=== PATIENT | female | born 1955 | race Caucasian/White ===

== ENCOUNTER 2017-04-24 19:59 | Inpatient (IN) ==
[2017-04-24] MEDS ORDERED: ONDANSETRON 4 MG/2 ML VIAL IV ONE (20:26)
[2017-04-24] MEDS ORDERED: 0.9 % SODIUM CHLORIDE 1,000 ML IV ONE ×2 (20:26→22:29)
[2017-04-24] MEDS ORDERED: ACETAMINOPHEN 325 MG TABLET PO ONE (20:29)
[2017-04-24 21:34] LABS: Basophils # (Auto) 0 K/mcL (0.0-0.3); Basophils % (Auto) 0.2 % (0.0-2.0); Eosinophils # (Auto) 0.1 K/mcL (0.0-0.7); Eosinophils % (Auto) 0.8 % (0.0-7.0); Granulocytes % (Auto) 82.5 % (38.0-78.0); Lymphocytes # (Auto) 0.7 K/mcL (1.5-4.8); Mean Cell Volume 85.7 fL (80.0-100.0); Mean Corpuscular HGB Conc 34.4 g/dL (31.0-36.0); Mean Corpuscular Hemoglobin 29.5 pg (26.0-34.0); Monocytes # (Auto) 0.6 K/mcL (0.1-0.9); Monocytes % (Auto) 7.5 % (1.0-12.0); Platelet Count 183 K/mcL (140-440); RBC 3.74 M/mcL (4.00-5.20); Red Cell Distribution Width 13.6 % (11.5-14.5)
[2017-04-24 21:51] LABS: ALT/SGPT 6 U/l (0-40); Albumin 3.4 gm/dL (3.2-5.2); Alkaline Phosphatase 91 U/L (39-117); Amylase 15 U/L (28-100); Blood Urea Nitrogen 43 mg/dl (8-23); Lipase 7 U/L (7-60)
[2017-04-24] MEDS ORDERED: cefTRIAXone 1 GM in DEXTROSE 5% IN WATER 50 ML IV ONE (23:23)
--- NOTE | 2017-04-24 23:57 | Emergency Department Note ---
General Adult HPI - General Chief complaint: Nausea/Vomiting/Diarrhea Stated complaint: vomiting with chills and hot flasheds Time Seen by Provider: 04/24/17 20:03 Source: patient, family Mode of arrival: ambulatory Limitations: no limitations - History of Present Illness HPI Narrative: 62-year-old female with nausea vomiting and elevated temperature for the last 3 days. Denies diarrhea. She has not been able to hold any food down. Feeling overall weak and sore. Not urinating much - Related Data Home Medications Medication Instructions Recorded Confirmed ALPRAZolam [Xanax] 0.5 mg PO DAILYP PRN 04/10/17 04/24/17 Atorvastatin [Lipitor] 20 mg PO HS 04/10/17 04/24/17 Hydrochlorothiazide [Oretic] 25 mg PO DAILY 04/10/17 04/24/17 Losartan [Cozaar] 25 mg PO DAILY 04/10/17 04/24/17 Omeprazole 20 mg PO DAILY 04/10/17 04/24/17 Oxybutynin Chloride [Ditropan] 10 mg PO BID 04/10/17 04/24/17 Sertraline [Zoloft] 200 mg PO DAILY 04/10/17 04/24/17 Promethazine-Dm Syrup 5 ml PO Q6HP PRN 04/13/17 04/24/17 Insulin Aspart [Novolog] 5 units SQ BID 04/24/17 04/24/17 Levemir 22 units SQ HS 04/24/17 04/24/17 Allergies Allergy/AdvReac Type Severity Reaction Status Date / Time Neomycin AdvReac Intermediate Rash Verified 11/22/16 08:22 Sulfa (Sulfonamide AdvReac Intermediate Rash Verified 11/22/16 08:22 Antibiotics) tetanus toxoid, adsorbed AdvReac Intermediate Swelling Verified 11/22/16 08:22 Review of Systems All systems ED: reviewed and negative except as stated. Past Medical History - Past Medical History Attestation: Yes: The following information was validated with the patient. Medical history: Reports: diabetes, GERD, hyperlipidemia, hypertension Surgical history ED: Reports: cholecystectomy, orthopedic, other (Left wrist) Psychiatric history: Reports: anxiety - Social History smoking status: Former smoker Alcohol use: Reports: None Drug use: Reports: none Physical Exam Weak fatigue and ill-appearing obese female. Normocephalic atraumatic. Conjunctive are clear sclerae white and nonicteric. No nasal discharge or congestion. Oropharynx with somewhat dry oral mucosa. Neck is supple without lymphadenopathy thyromegaly or carotid bruit. Heart is regular rate and rhythm no murmurs appreciated. Lungs are clear to auscultation bilaterally without wheezes rales rhonchi or respiratory distress. Abdomen is soft nondistended but tender diffusely. No peritoneal signs or guarding. Normal active bowel sounds. No pedal edema. +2 radial pulse. Alert and able to answer questions appropriately. No dysarthria ataxia or tremor - General Limitations: no limitations Course Vital Signs Temperature 100.3 F H 04/24/17 20:00 Pulse Rate 86 04/24/17 20:00 Respiratory Rate 16 04/24/17 20:00 Blood Pressure 142/61 04/24/17 20:00 Pulse Oximetry (%) 97 04/24/17 20:00 Temperature 100.3 F H 04/24/17 20:00 Pulse Rate 88 04/24/17 23:39 Respiratory Rate 16 04/24/17 20:00 Blood Pressure 114/52 04/24/17 23:31 Pulse Oximetry (%) 96 04/24/17 23:39 Medical Decision Making - Medical Records Medical records reviewed: Yes I reviewed the patient's medical records. - Lab Data Lab results reviewed: Yes I reviewed the patient's lab results. Result diagrams: 04/24/17 20:53 04/24/17 20:53 Lab Results 04/24/17 04/24/17 Range/Units 20:53 20:53 WBC 7.8 (4.5-11.0) K/mcL RBC 3.74 L (4.00-5.20) M/mcL Hgb 11.0 L (12.0-15.0) g/dL Hct 32.1 L (36.0-48.0) % MCV 85.7 (80.0-100.0) fL MCH 29.5 (26.0-34.0) pg MCHC 34.4 (31.0-36.0) g/dL RDW 13.6 (11.5-14.5) % Plt Count 183 (140-440) K/mcL MPV 8.4 (7.4-10.4) fL Gran % 82.5 H (38.0-78.0) % Lymph % (Auto) 9.0 L (15.5-49.0) % Gilchrist % (Auto) 7.5 (1.0-12.0) % Eos % (Auto) 0.8 (0.0-7.0) % Baso % (Auto) 0.2 (0.0-2.0) % Gran # 6.4 (1.8-8.0) K/mcL Lymph # (Auto) 0.7 L (1.5-4.8) K/mcL Gilchrist # (Auto) 0.6 (0.1-0.9) K/mcL Eos # (Auto) 0.1 (0.0-0.7) K/mcL Baso # (Auto) 0 (0.0-0.3) K/mcL Sodium 133 (133-145) mmol/L Potassium 4.3 (3.3-5.1) mmol/L Chloride 95 L (96-108) mmol/L Carbon Dioxide 22 (22-30) mmol/L Anion Gap 16.0 (8-16) BUN 43 H (8-23) mg/dl Creatinine 1.6 H (0.6-1.1) mg/dl GFR Calculation 34 Glucose 252 H (70-105) mg/dL Calcium 9.3 (8.6-10.4) mg/dl Total Bilirubin 0.5 (0.0-1.0) mg/dL AST 14 (0-37) U/l ALT 6 (0-40) U/l Alkaline Phosphatase 91 (39-117) U/L Total Protein 6.9 (5.9-8.4) gm/dL Albumin 3.4 (3.2-5.2) gm/dL Globulin 3.5 (2.2-3.7) gm/dL Albumin/Globulin Ratio 1.0 (1.0-2.3) Amylase 15 L (28-100) U/L Lipase 7 (7-60) U/L Urinalysis shows specific gravity 1.010 moderate leukocytes - Radiology Data Radiology results reviewed: Yes I reviewed the patient's radiology results. Abdominal x-ray was done first which shows constipation with lots of stool. Also PillCam was seen CT scan of the abdomen and pelvis with contrast was done secondary to the x-ray being unrevealing and the patient appearing more ill, developing fever shows fat stranding around bilateral kidneys left worse than right-consistent with cystitis/pyelonephritis Disposition Clinical Impression: Pyelonephritis Summary: Initially treated for UTI with Rocephin. Also given IV fluid for elevated creatinine and Zofran for nausea. However also has a fever and evidence of pyelonephritis with fat stranding around both kidneys on CT scan. Discussed scenario with Dr. Claros who will admit for pyelonephritis Disposition: Xfer As Inpt ([facility]) Condition: Fair Referrals: Bri Ryder ARNP [Primary Care Provider] -
[2017-04-25] MEDS ORDERED: 0.9 % SODIUM CHLORIDE 1,000 ML IV ONE ×2 (01:16→02:23)
--- NOTE | 2017-04-25 01:52 | Internal Med History&Physical ---
Medical - H&P: HPI Patient information: Note initiated : 04/25/17 at 1:46 am Service Date, if different from initiated Date: [] Patient: Lulu Barth a 62 y/o F admitted on for vomiting with chills and hot flasheds. Chief Complaint: [] History of present illness: Ms. Criselda Gee is a 62 year old female with h/o DM, CKD, HTN, HLD, who presents to the ER because of nause and vomiting x 2 days, abdominal discomfort x 2 days. Chills with rigors x 4 days. The patient notes that she had one episode of cough with greenish sputum approximately 1 month ago, she was seen in the urgent care clinic adn treated for same. but thinks that she never quite recovered from that. In the interim she was also diagnosed with iron def anemia by her dispensing optician and was advised to be evaluated by GI, She has had an EGD, colonoscopy and a capsule endoscopy. Capsule endoscopy was done on the . The patient started feeling sick since Sunday, she had an episode of chills and rigors which lasted a few hours, She also had another bout of chills and rigors on sunday, Since sunday she has been having nausea with vomiting, and some abdominal discomfort in the epigastric region, Ruq region. The patient had chills rigors with nausea and vomiting and therefore presented to the ER for further Evaluation. She denies any other acute complaints, besides headache, she denies any urinary symptoms. In the ER she had labs which are unremarkable, except mild renal failure(h/o CKD ), She had low bp which responded well to IV fluids. UA is abnormal, CT shows perinephric stranding. She was admitted to the hospital with diagnosis of UTI./ Pyelonephritis. All systems: reviewed and no additional remarkable complaints except as stated ( as per HPI) Medical - H&P: PMH Medical history: Medical History (Last Updated 04/24/17 @ 23:57 by Shan Ryder MD) Fracture, radius, head (Acute) DM HTN CKD HLD Surgical history: h/o cholecystectomy. 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 Medical - H&P: Meds Home Medications Medication Instructions Recorded Confirmed Type ALPRAZolam [Xanax] 0.5 mg PO DAILYP PRN 04/10/17 04/24/17 History Atorvastatin [Lipitor] 20 mg PO HS 04/10/17 04/24/17 History Hydrochlorothiazide [Oretic] 25 mg PO DAILY 04/10/17 04/24/17 History Losartan [Cozaar] 25 mg PO DAILY 04/10/17 04/24/17 History Omeprazole 20 mg PO DAILY 04/10/17 04/24/17 History Oxybutynin Chloride [Ditropan] 10 mg PO BID 04/10/17 04/24/17 History Sertraline [Zoloft] 200 mg PO DAILY 04/10/17 04/24/17 History Promethazine-Dm Syrup 5 ml PO Q6HP PRN 04/13/17 04/24/17 History Insulin Aspart [Novolog] 5 units SQ BID 04/24/17 04/24/17 History Levemir 22 units SQ HS 04/24/17 04/24/17 History Allergies Allergy/AdvReac Type Severity Reaction Status Date / Time Neomycin AdvReac Intermediate Rash Verified 11/22/16 08:22 Sulfa (Sulfonamide AdvReac Intermediate Rash Verified 11/22/16 08:22 Antibiotics) tetanus toxoid, adsorbed AdvReac Intermediate Swelling Verified 11/22/16 08:22 Medical - H&P: Exam - Constitutional Vitals: Temp Pulse Resp BP Pulse Ox 100.3 F H 88 16 114/52 96 04/24/17 20:00 04/24/17 23:39 04/24/17 20:00 04/24/17 23:31 04/24/17 23:39 Exam: GENERAL: The patient is a well-developed, well-nourished in no apparent distress. Is alert and oriented x3. VITAL SIGNS: Reviewed and as noted elsewhere. HEENT: Head is normocephalic and atraumatic. Extraocular muscles are intact. Pupils are equal, round, and reactive to light. Nares appeared normal. Mouth appears any without lesions. Mucous membranes are dry. NECK: Normal to inspection, Supple, No lymphadenopathy or thyromegaly. LUNGS: Air entry equal on both sides, no wheezing, crackles or rhonchi noted. No accessory muscles of respiration HEART: Regular rate and rhythm normal, S1 and S2 heard, no Gallop, S3 or Rub Noted, No Gross murmur heard. ABDOMEN: Soft, nontender, and nondistended. Positive bowel sounds. No hepatosplenomegaly was noted. EXTREMITIES: No cyanosis, clubbing, rash, lesions or edema. NEUROLOGIC: Cranial nerves II through XII are grossly intact. Motor and Sensory System Grossly Intact PSYCHIATRIC: Normal affect, Normal Mood. Appropriate Behavior. SKIN: No ulceration or wounds noted, No jaundice, No rash noted. Medical - H&P: Reslt - Labs CBC & Chem 7: 04/24/17 20:53 04/24/17 20:53 Labs: Short CBC 04/24/17 Range/Units 20:53 WBC 7.8 (4.5-11.0) K/mcL Hgb 11.0 L (12.0-15.0) g/dL Hct 32.1 L (36.0-48.0) % Plt Count 183 (140-440) K/mcL BMP 04/24/17 20:53 Sodium 133 Potassium 4.3 Chloride 95 L Carbon Dioxide 22 BUN 43 H Creatinine 1.6 H Glucose 252 H Calcium 9.3 Liver Function 04/24/17 Range/Units 20:53 Total Bilirubin 0.5 (0.0-1.0) mg/dL AST 14 (0-37) U/l ALT 6 (0-40) U/l Alkaline Phosphatase 91 (39-117) U/L Albumin 3.4 (3.2-5.2) gm/dL Medical - H&P: A/P - Narrative A/P Narrative: A/P Pyelonephritis: Abnl UA and positive CT findings suggestive of same. IV rocephin for now. Monitor, lactate and wbc is wnl but pt clinically appears sick. Pt does not have much urinary symptoms, Will review CT with our Radiologist in AM. Zoonotic exposure? Get CXR chest given h/o PNA. Await blood cultures. MADELINE on CKD: IV fluids for now, monitor renal function. DM: Glucose elevated, lantus and pre meal sliding scale for now; HTN: BP on the lower end, hold bp meds for now, and monitor. DVT hep sq Diet diabetic Full code .
[2017-04-25] MEDS ORDERED: oxyCODONE HCL 5 MG TABLET PO PRN (02:23)
[2017-04-25] MEDS ORDERED: NALOXONE HCL 0.4 MG/ML VIAL IV PRN (02:23)
[2017-04-25] MEDS ORDERED: DEXTROSE 50% 50 ML VIAL IV PRN (02:23)
[2017-04-25] MEDS ORDERED: PROMETHAZINE 25 MG/ML VIAL IV PRN (02:23)
[2017-04-25] MEDS ORDERED: MAGNESIUM HYDROXIDE 30 ML ORAL.SUSP PO PRN (02:23)
[2017-04-25] MEDS: 0.9 % SODIUM CHLORIDE 10 ML SYRINGE IV SCH ×4 (02:25→23:34)
[2017-04-25] MEDS: 0.9 % SODIUM CHLORIDE 1,000 ML IV SCH ×4 (02:26→22:10)
[2017-04-25] MEDS: cefTRIAXone 1 GM in DEXTROSE 5% IN WATER 50 ML IV SCH ×2 (03:22→09:38)
[2017-04-25 05:50] LABS: Basophils # (Auto) 0 K/mcL (0.0-0.3); Basophils % (Auto) 0.3 % (0.0-2.0); Eosinophils # (Auto) 0 K/mcL (0.0-0.7); Eosinophils % (Auto) 0.4 % (0.0-7.0); Granulocytes % (Auto) 77.9 % (38.0-78.0); Lymphocytes # (Auto) 0.9 K/mcL (1.5-4.8); Lymphocytes % (Auto) 14.9 % (15.5-49.0); Mean Cell Volume 87.5 fL (80.0-100.0); Mean Corpuscular HGB Conc 34.2 g/dL (31.0-36.0); Mean Corpuscular Hemoglobin 29.9 pg (26.0-34.0); Monocytes # (Auto) 0.4 K/mcL (0.1-0.9); Monocytes % (Auto) 6.5 % (1.0-12.0); Platelet Count 161 K/mcL (140-440); RBC 3.49 M/mcL (4.00-5.20); Red Cell Distribution Width 13.1 % (11.5-14.5)
[2017-04-25 06:12] LABS: Hemoglobin A1C 7.1 % HGB (4.0-6.0)
[2017-04-25 06:26] LABS: ALT/SGPT 5 U/l (0-40); Albumin 3.1 gm/dL (3.2-5.2); Alkaline Phosphatase 82 U/L (39-117); Bilirubin,Direct < 0.2 mg/dL (0.0-0.3); Blood Urea Nitrogen 40 mg/dl (8-23); Gamma Glutamyl Transpeptidase 17 U/L (5-36); Magnesium 1.3 mg/dL (1.6-2.5); Uric Acid 6.4 mg/dL (2.5-8.0)
--- NOTE | 2017-04-25 06:58 | XRay Report ---
CLINICAL INFORMATION: Pneumonia COMPARISON: 03/26/2013 FINDINGS: Heart size, mediastinum and pulmonary vessels are normal. There is minor atelectasis in the right base - no andreia infiltrate or effusion. Bones and soft tissues normal IMPRESSION: No evidence of pneumonia - minor right basilar atelectasis Interpreted and Authenticated by: Fredrick Gomez 04/25/17
[2017-04-25] MEDS: INSULIN LISPRO 1 UNIT/0.01 ML UNIT SQ SCH ×4 (07:13→20:33)
[2017-04-25] MEDS: ONDANSETRON 4 MG/2 ML VIAL IV PRN (07:13)
[2017-04-25] MEDS: PANTOPRAZOLE 40 MG TABLET PO SCH (07:13)
--- NOTE | 2017-04-25 07:42 | XRay Report ---
CLINICAL INFORMATION: Nausea and vomiting COMPARISON: None. FINDINGS: There is an 18 x 11 mm cylindrical shaped metallic foreign body overlying the left upper quadrant. Exact location is unknown. Stool gas pattern is otherwise normal - there is no free air to suggest GI perforation. No soft tissue mass or organomegaly. IMPRESSION: 18 mm cylindrical shaped metallic foreign body overlying the left upper quadrant. Follow-up CT to be performed Interpreted and Authenticated by: Fredrick Gomez 04/25/17
[2017-04-25] MEDS ORDERED: MAGNESIUM SULFATE 2 GM/50 ML BAG IV ONE (07:49)
--- NOTE | 2017-04-25 08:01 | Cat Scan Report ---
CLINICAL INFORMATION: Acute abdominal pain and vomiting COMPARISON: None. TECHNIQUE: 2.5 mm helical slices were obtained from the mid heart through the subtrochanteric regions. Following reconstruction, 2.5 mm sagittal, coronal and axial reformatted images were processed and reviewed at bone, lung and soft tissue windows. FINDINGS: Lung bases show only minor scattered scarring and/or atelectasis. There are no pleural effusions. The heart is normal in size with a small pericardial effusion. Images through the abdomen show the gallbladder is surgically absent. Intrahepatic and common bile ducts are normal caliber (CBD: 6 mm). The noncontrasted liver, both adrenal glands spleen and aorta are normal in size configuration and attenuation without focal lesion. There is moderate diffuse pancreatic atrophy with fat replacement of the parenchyma. There are few tiny nonobstructing stones within the calyces of both kidneys - less than 2 mm. Images through the pelvis show urinary bladder with mild diffuse wall thickening. A retroverted normal appearing postmenopausal uterus spans the 6.1 x 4 cm. There is no free air, free fluid and no adenopathy. A cylindrical metallic foreign body, likely an electronic bone and, spans 15 x 10 mm and is located in the lumen of the splenic flexure.. No evidence of perforation or bowel obstruction. The remaining colon, including the appendix, small bowel and stomach are grossly normal. Bone windows show no osseous abnormality. IMPRESSION: 1. 15 x 10 mm cylindrical shaped metallic foreign body within the lumen of the colonic splenic flexure. No evidence of perforation or obstruction. It appears to be a small electronic component. It is predicted this will pass spontaneously 2. Small hiatal hernia 3. Small pericardial effusion 4. Moderate pancreatic atrophy 5. Mild diffuse wall thickening the urinary bladder likely an artifact of underdistention. Cystitis possible Interpreted and Authenticated by: Fredrick Gomez 04/25/17
[2017-04-25] MEDS ORDERED: NON FORMULARY MEDICATION 1 DOSE MISCELL (Omeprazole [Omeprazole] 20 MG) PO SCH (09:00)
[2017-04-25] MEDS: HEPARIN 5,000 UNIT/ML VIAL SQ SCH ×2 (09:39→20:04)
[2017-04-25] MEDS: OXYBUTYNIN CHLORIDE 5 MG TABLET PO SCH ×2 (09:39→20:04)
[2017-04-25] MEDS: SERTRALINE 50 MG TABLET PO SCH (09:40)
[2017-04-25] MEDS: INSULIN GLARGINE, HUMAN 1 UNIT/0.01 ML SQ SCH (09:51)
[2017-04-25] MEDS: ATORVASTATIN 20 MG TABLET PO SCH (20:04)
[2017-04-25] MEDS: ACETAMINOPHEN 325 MG TABLET PO PRN (20:57)
[2017-04-26] MEDS: 0.9 % SODIUM CHLORIDE 10 ML SYRINGE IV SCH ×3 (05:51→21:01)
[2017-04-26 06:29] LABS: Basophils # (Auto) 0 K/mcL (0.0-0.3); Basophils % (Auto) 0.4 % (0.0-2.0); Eosinophils # (Auto) 0.1 K/mcL (0.0-0.7); Eosinophils % (Auto) 1.1 % (0.0-7.0); Granulocytes % (Auto) 74.5 % (38.0-78.0); Lymphocytes # (Auto) 0.8 K/mcL (1.5-4.8); Lymphocytes % (Auto) 16.5 % (15.5-49.0); Mean Cell Volume 87.6 fL (80.0-100.0); Mean Corpuscular HGB Conc 33.7 g/dL (31.0-36.0); Mean Corpuscular Hemoglobin 29.5 pg (26.0-34.0); Monocytes # (Auto) 0.4 K/mcL (0.1-0.9); Monocytes % (Auto) 7.5 % (1.0-12.0); Platelet Count 140 K/mcL (140-440); RBC 3.25 M/mcL (4.00-5.20); Red Cell Distribution Width 13.4 % (11.5-14.5)
[2017-04-26 06:56] LABS: ALT/SGPT 7 U/l (0-40); Alkaline Phosphatase 75 U/L (39-117); Bilirubin,Direct < 0.2 mg/dL (0.0-0.3); Blood Urea Nitrogen 30 mg/dl (8-23); Gamma Glutamyl Transpeptidase 18 U/L (5-36); Magnesium 1.8 mg/dL (1.6-2.5); Uric Acid 6.2 mg/dL (2.5-8.0)
[2017-04-26] MEDS: PANTOPRAZOLE 40 MG TABLET PO SCH (07:50)
[2017-04-26] MEDS: INSULIN LISPRO 1 UNIT/0.01 ML UNIT SQ SCH ×4 (07:51→21:01)
[2017-04-26] MEDS: SERTRALINE 50 MG TABLET PO SCH (09:08)
[2017-04-26] MEDS: OXYBUTYNIN CHLORIDE 5 MG TABLET PO SCH ×2 (09:08→21:01)
[2017-04-26] MEDS: HEPARIN 5,000 UNIT/ML VIAL SQ SCH ×2 (09:10→21:00)
[2017-04-26] MEDS: INSULIN GLARGINE, HUMAN 1 UNIT/0.01 ML SQ SCH (09:10)
[2017-04-26] MEDS: cefTRIAXone 1 GM in DEXTROSE 5% IN WATER 50 ML IV SCH (09:13)
--- NOTE | 2017-04-26 12:10 | Internal Med Progress Note ---
Medical - PN: Subj Patient information: Note initiated : 04/26/17 at 11:53 am Service Date, if different from initiated Date: [] Patient: Lulu Barth a 62 y/o F admitted on 04/25/17 for vomiting with chills and hot flasheds. Chief Complaint: [] Interval history: Ms. Criselda Gee is a 62 year old female with h/o DM, CKD, HTN, HLD, who presents to the ER because of nause and vomiting x 2 days, abdominal discomfort x 2 days. Chills with rigors x 4 days. The patient notes that she had one episode of cough with greenish sputum approximately 1 month ago, she was seen in the urgent care clinic adn treated for same. but thinks that she never quite recovered from that. In the interim she was also diagnosed with iron def anemia by her mammographer and was advised to be evaluated by GI, She has had an EGD, colonoscopy and a capsule endoscopy. Capsule endoscopy was done on the . The patient started feeling sick since Sunday, she had an episode of chills and rigors which lasted a few hours, She also had another bout of chills and rigors on sunday, Since sunday she has been having nausea with vomiting, and some abdominal discomfort in the epigastric region, Ruq region. The patient had chills rigors with nausea and vomiting and therefore presented to the ER for further Evaluation. She denies any other acute complaints, besides headache, she denies any urinary symptoms. In the ER she had labs which are unremarkable, except mild renal failure(h/o CKD ), She had low bp which responded well to IV fluids. UA is abnormal, CT shows perinephric stranding. She was admitted to the hospital with diagnosis of UTI./ Pyelonephritis. 04/26 Pt seen examined, no new complaints, was febrile yesterday evening, new set of blood cultres sent. Urine cx positive for ecoli, pt on rocephin. She has intermittent cough, and still has intermittent fevers and chills with rigors, responding well to tylenol. She denies h/o camping or travel outside the country. At this point the working diagnosis is pylenonephritis and UTI, will also look for another source, Chest CT and Parasite smear to be ordered, Pertinent ROS: headache dizziness improved Denies chest pain, palpitations Denies cough or shortness of breath Denies abdominal pain, nausea or vomiting. - Constitutional Vitals: Vital Signs Temp Pulse Resp BP Pulse Ox 97.5 F 66 16 120/72 96 04/26/17 11:37 04/26/17 03:27 04/26/17 11:37 04/26/17 11:37 04/26/17 11:37 Period Temp Pulse Resp BP Sys/Saeed Pulse Ox Last 24 Hr 97.5 F-101.4 F 66-81 14-20 105-149/53-72 90-96 Intake and Output 04/25/17 04/26/17 04/26/17 21:59 05:59 13:59 Intake Total 100 / 100 1250 / 1250 Output Total 525 / 525 450 / 450 650 / 650 Balance -525 / -525 -350 / -350 600 / 600 Weight 256 lb Intake & Output: Intake & Output 04/25/17 04/26/17 04/26/17 21:59 05:59 13:59 Intake Total 100 / 100 1250 / 1250 Output Total 525 / 525 450 / 450 650 / 650 Balance -525 / -525 -350 / -350 600 / 600 Weight 256 lb Intake: IV 1050 / 1050 Rocephin 1 gm In Dextrose 50 / 50 5% in Water 50 ml @ 100 mls/hr IV Q24H [facility] Rx#: [id number] Oral 100 / 100 200 / 200 Output: Void Amount 525 / 525 450 / 450 650 / 650 Other: Meal Lunch Percent of Meal Consumed 100% # Voids 1 # Bowel Movements 1 1 Exam: Constitutional; Afebrile, cooperative, alert, not in distress. Eyes- No icterus, , No periorbital swelling Ears- Ext ear normal, hearing normal to conversation. Neck- Midline trachea, supple Respiratory system: Air Entry equal on both sides, No crackles or wheezing, no rhonchi. CVS- Rate rhythm regular, S1,S2 heard, no gallop, no rub. Abdomen- Soft nontender abdomen, no organomegaly, no tenderness, no guarding or rigidity, 2 YE[employer]- AOOx3, moving all extremities, no gross focal deficit noted. Medical - PN: Obj Da - Labs CBC & Chem 7: 04/26/17 05:22 04/26/17 05:22 Labs: Abnormal Lab Results 04/26/17 04/26/17 04/25/17 05:22 05:22 03:48 RBC 3.25 L Hgb 9.6 L Hct 28.5 L Lymph % (Auto) Lymph # (Auto) 0.8 L BUN 30 H Creatinine 1.5 H Glucose 182 H Hemoglobin A1c 7.1 H Calcium Magnesium Albumin 3.0 L 04/25/17 04/25/17 03:48 03:48 RBC 3.49 L Hgb 10.4 L Hct 30.6 L Lymph % (Auto) 14.9 L Lymph # (Auto) 0.9 L BUN 40 H Creatinine 1.5 H Glucose 234 H Hemoglobin A1c Calcium 8.5 L Magnesium 1.3 L Albumin 3.1 L Meds: Medications Acetaminophen (Tylenol) 650 mg PO Q6HP PRN PRN Reason: PAIN/FEVER > 101 Last Admin: 04/25/17 20:57 Dose: 650 mg Albuterol/Ipratropium (Duoneb) 3 ml NEB Q4HRT PRN PRN Reason: Shortness Of Breath Or Wheezing Alprazolam (Xanax) 0.5 mg PO DAILYP PRN PRN Reason: Anxiety Atorvastatin Calcium (Lipitor) 20 mg PO HS [facility] Last Admin: 04/25/17 20:04 Dose: 20 mg Dextrose (Dextrose 50%) 0 ml IV UD PRN PRN Reason: Hypoglycemia Diagnostic Test (Pha) (Accu-Chek) 1 each FS ACHS [facility] Last Admin: 04/26/17 07:50 Dose: 1 each Heparin Sodium (Porcine) (Heparin) 5,000 unit SQ Q12 [facility] Last Admin: 04/26/17 09:10 Dose: 5,000 unit Ceftriaxone Sodium 1 gm/ (Dextrose) 50 mls @ 100 mls/hr IV Q24H [facility] Last Infusion: 04/26/17 09:57 Dose: Infused Insulin Glargine (Lantus) 10 unit SQ DAILY [facility] Last Admin: 04/26/17 09:10 Dose: 10 unit Insulin Human Lispro (Humalog) 0 unit SQ ACHS [facility] PRN Reason: Protocol Last Admin: 04/26/17 07:51 Dose: 1 unit Magnesium Hydroxide (Milk Of Magnesia) 30 ml PO DAILYP PRN PRN Reason: Constipation Naloxone HCl (Narcan) 0.1 mg IV Q2MIN PRN PRN Reason: Opiate Reversal Ondansetron HCl (Zofran) 4 mg IV Q6HP PRN PRN Reason: Nausea And Vomiting Last Admin: 04/25/17 07:13 Dose: 4 mg Oxybutynin Chloride (Ditropan) 10 mg PO BID [facility] Last Admin: 04/26/17 09:08 Dose: 10 mg Oxycodone HCl (Roxicodone) 5 mg PO Q4HP PRN PRN Reason: Pain Pantoprazole Sodium (Protonix) 40 mg PO QAMAC [facility] Last Admin: 04/26/17 07:50 Dose: 40 mg Promethazine HCl (Phenergan) 12.5 mg IV Q6HP PRN PRN Reason: Nausea And Vomiting Sertraline HCl (Zoloft) 200 mg PO DAILY [facility] Last Admin: 04/26/17 09:08 Dose: 200 mg Sodium Chloride (Saline Flush) 10 ml IV Q8 [facility] Last Admin: 04/26/17 05:51 Dose: Not Given Medical - PN: A/P - Time Spent With Patient Total time spent is greater than 50% in coordination of care (as documented) at patient's floor/unit and/or counseling patient: - Narrative A/P Narrative: A/P Pyelonephritis: still the working diagnosis, Urine cx positive for ecoli, sensitive for rocepin, given clinical picture, will get CT chest, parasite smear and [place] viris antibody MADELINE on CKD: IV fluids for now, renal function nearly back to baseline. creat 1.5 DM: Glucose elevated, lantus and pre meal sliding scale for now; glucose is above goal, increase sliding scale to medium. HTN: BP stable, hold bp meds resume once bp improves. DVT hep sq Diet diabetic Full code . Medical - PN: Qual - VTE Deep Vein Thrombosis/Pulmonary Embolism Present on Admission: No
--- NOTE | 2017-04-26 13:35 | Cat Scan Report ---
CLINICAL INFORMATION: Fever COMPARISON: Chest x-ray 04/25/2017 TECHNIQUE: 2.5 mm axial slices were obtained from the lung apices through the bases without intravenous contrast. Sagittal, coronal and axial reformatted images were processed and reviewed at bone, lung and soft tissue windows. 7 mm axial MIP images were also reconstructed. FINDINGS: Pulmonary parenchymal windows show vague patchy groundglass infiltrates in a peribronchial vascular distribution within the right upper, middle and lower lobes. There is only minimal scattered scarring or atelectasis in the peripheral left lower lobe. Tiny bilateral pleural effusions are appreciated. Mediastinal windows show the heart is mildly enlarged with small pericardial effusion. Central pulmonary arteries are mildly enlarged - 3.3 cm. The noncontrasted thoracic aorta is normal. There is no adenopathy in the mediastinal hilar or axillary region. Esophagus is normal. The bones and soft tissues the chest wall are significant for a moderate size - 8 mm AP dimension left paracentral calcified disc protrusion at T8-9. It mildly impinges the anterior thoracic cord. IMPRESSION: 1. Small vague patchy, multifocal groundglass infiltrates in the right, upper middle and lower lobes. Suspect infection 2. Multiple large central pulmonary arteries suggestive, but not diagnostic, of pulmonary hypertension 3. Moderate sized (8 mm) left paracentral calcified disc extrusion at T8-9 which mildly impinges the thoracic cord. This is likely long-standing and may not be significant 4. Small pericardial effusion Interpreted and Authenticated by: Fredrick Gomez 04/26/17
[2017-04-26] MEDS: IPRATROPIUM/ALBUTEROL 3 ML AMPUL.NEB NEB PRN (21:00)
[2017-04-26] MEDS: ATORVASTATIN 20 MG TABLET PO SCH (21:00)
[2017-04-26] MEDS: ACETAMINOPHEN 325 MG TABLET PO PRN (21:08)
[2017-04-26] MEDS: ALPRAZolam 0.5 MG TABLET PO PRN (22:04)
[2017-04-27] MEDS: ACETAMINOPHEN 325 MG TABLET PO PRN (03:46)
[2017-04-27 06:14] LABS: Basophils # (Auto) 0 K/mcL (0.0-0.3); Basophils % (Auto) 0.3 % (0.0-2.0); Eosinophils # (Auto) 0.1 K/mcL (0.0-0.7); Eosinophils % (Auto) 1.1 % (0.0-7.0); Granulocytes % (Auto) 72.7 % (38.0-78.0); Lymphocytes # (Auto) 0.9 K/mcL (1.5-4.8); Lymphocytes % (Auto) 17.9 % (15.5-49.0); Mean Cell Volume 87.2 fL (80.0-100.0); Mean Corpuscular HGB Conc 33.8 g/dL (31.0-36.0); Mean Corpuscular Hemoglobin 29.4 pg (26.0-34.0); Monocytes # (Auto) 0.4 K/mcL (0.1-0.9); Platelet Count 148 K/mcL (140-440); RBC 3.15 M/mcL (4.00-5.20); Red Cell Distribution Width 13.5 % (11.5-14.5)
[2017-04-27 06:41] LABS: ALT/SGPT 7 U/l (0-40); Albumin 3.1 gm/dL (3.2-5.2); Alkaline Phosphatase 82 U/L (39-117); Bilirubin,Direct < 0.2 mg/dL (0.0-0.3); Blood Urea Nitrogen 31 mg/dl (8-23); Gamma Glutamyl Transpeptidase 19 U/L (5-36); Magnesium 1.6 mg/dL (1.6-2.5)
[2017-04-27] MEDS: 0.9 % SODIUM CHLORIDE 10 ML SYRINGE IV SCH ×3 (08:37→20:42)
[2017-04-27] MEDS: PANTOPRAZOLE 40 MG TABLET PO SCH (08:37)
[2017-04-27] MEDS: INSULIN LISPRO 1 UNIT/0.01 ML UNIT SQ SCH ×4 (09:09→20:42)
[2017-04-27] MEDS: HEPARIN 5,000 UNIT/ML VIAL SQ SCH ×2 (09:09→20:41)
[2017-04-27] MEDS: INSULIN GLARGINE, HUMAN 1 UNIT/0.01 ML SQ SCH ×2 (09:09→20:42)
[2017-04-27] MEDS: SERTRALINE 50 MG TABLET PO SCH (09:12)
[2017-04-27] MEDS: AZITHROMYCIN 250 MG TABLET PO SCH (09:12)
[2017-04-27] MEDS: OXYBUTYNIN CHLORIDE 5 MG TABLET PO SCH ×2 (09:12→20:41)
[2017-04-27] MEDS: cefTRIAXone 1 GM in DEXTROSE 5% IN WATER 50 ML IV SCH (09:13)
[2017-04-27] MEDS ORDERED: BISACODYL 10 MG SUPP.RECT PR PRN (10:46)
[2017-04-27] MEDS ORDERED: FLEETS ADULT ENEMA PR PRN (10:46)
--- NOTE | 2017-04-27 12:37 | XRay Report ---
CLINICAL INFORMATION: Foreign body COMPARISON: 04/24/2017 FINDINGS: The 18th millimeters cylindrical foreign body, previously located in the splenic flexure of the colon, migrated into the mid sigmoid colon. Stool gas pattern is unremarkable. There is no free air to suggest bowel perforation. No soft tissue mass, organomegaly or pathologic calcification IMPRESSION: 18 mm cylindrical metallic foreign body is migrated now within the mid sigmoid colon. No evidence of bowel perforation or other complication Interpreted and Authenticated by: Fredrick Gomez 04/27/17
--- NOTE | 2017-04-27 12:37 | Internal Med Progress Note ---
Medical - PN: Subj Patient information: Note initiated : 04/27/17 at 12:34 pm Service Date, if different from initiated Date: [] Patient: Lulu Barth a 62 y/o F admitted on 04/25/17 for vomiting with chills and hot flasheds. Chief Complaint: [] Interval history: Ms. Criselda Gee is a 62 year old female with h/o DM, CKD, HTN, HLD, who presents to the ER because of nause and vomiting x 2 days, abdominal discomfort x 2 days. Chills with rigors x 4 days. The patient notes that she had one episode of cough with greenish sputum approximately 1 month ago, she was seen in the urgent care clinic adn treated for same. but thinks that she never quite recovered from that. In the interim she was also diagnosed with iron def anemia by her fire protection specialist and was advised to be evaluated by GI, She has had an EGD, colonoscopy and a capsule endoscopy. Capsule endoscopy was done on the . The patient started feeling sick since Sunday, she had an episode of chills and rigors which lasted a few hours, She also had another bout of chills and rigors on sunday, Since sunday she has been having nausea with vomiting, and some abdominal discomfort in the epigastric region, Ruq region. The patient had chills rigors with nausea and vomiting and therefore presented to the ER for further Evaluation. She denies any other acute complaints, besides headache, she denies any urinary symptoms. In the ER she had labs which are unremarkable, except mild renal failure(h/o CKD ), She had low bp which responded well to IV fluids. UA is abnormal, CT shows perinephric stranding. She was admitted to the hospital with diagnosis of UTI./ Pyelonephritis. 04/26 Pt seen examined, no new complaints, was febrile yesterday evening, new set of blood cultres sent. Urine cx positive for ecoli, pt on rocephin. She has intermittent cough, and still has intermittent fevers and chills with rigors, responding well to tylenol. She denies h/o camping or travel outside the country. At this point the working diagnosis is pylenonephritis and UTI, will also look for another source, Chest CT and Parasite smear to be ordered, 04/27 Pt seen examined, no acute overnight events, had low grade temp again yesterday evening, which responded well to tylenol, Blood culture are neg so far , CT chest done showsw possible mild early PNA, based on interstitial changes, Zithromax added. She remains on rocphen for UTI/ Pyelonephritis. Prolactin levels continue to trend down, which is a good sign, [place] virus pending. No h/o tick bites or camping, hold off on parasite smear, Pt reports improvement , but still is very tired. Pertinent ROS: Constitutional; Afebrile, cooperative, alert, not in distress. Eyes- No icterus, , No periorbital swelling Ears- Ext ear normal, hearing normal to conversation. Neck- Midline trachea, supple Respiratory system: Air Entry equal on both sides, No crackles or wheezing, no rhonchi. CVS- Rate rhythm regular, S1,S2 heard, no gallop, no rub. Abdomen- Soft nontender abdomen, no organomegaly, no tenderness, no guarding or rigidity, DISEASE CASE MANAGER- AOOx3, moving all extremities, no gross focal deficit noted. - Constitutional Vitals: Vital Signs Temp Pulse Resp BP Pulse Ox 98.8 F 72 16 124/60 92 04/27/17 11:49 04/27/17 04:00 04/27/17 11:49 04/27/17 11:49 04/27/17 11:49 Period Temp Pulse Resp BP Sys/Saeed Pulse Ox Last 24 Hr 97.3 F-100.4 F 72-102 16-24 96-138/55-75 90-96 Intake and Output 04/26/17 04/27/17 04/27/17 21:59 05:59 13:59 Intake Total 800 / 800 150 / 150 480 / 480 Output Total 525 / 525 550 / 550 650 / 650 Balance 275 / 275 -400 / -400 -170 / -170 Weight 260 lb Intake & Output: Intake & Output 04/26/17 04/27/17 04/27/17 21:59 05:59 13:59 Intake Total 800 / 800 150 / 150 480 / 480 Output Total 525 / 525 550 / 550 650 / 650 Balance 275 / 275 -400 / -400 -170 / -170 Weight 260 lb Intake: Oral 800 / 800 150 / 150 480 / 480 Output: Void Amount 525 / 525 550 / 550 650 / 650 Other: Meal Breakfast Percent of Meal Consumed 100% Exam: Constitutional; Afebrile, cooperative, alert, not in distress. Eyes- No icterus, , No periorbital swelling Ears- Ext ear normal, hearing normal to conversation. Neck- Midline trachea, supple Respiratory system: Air Entry equal on both sides, No crackles or wheezing, no rhonchi. CVS- Rate rhythm regular, S1,S2 heard, no gallop, no rub. Abdomen- Soft nontender abdomen, no organomegaly, no tenderness, no guarding or rigidity, DISEASE CASE MANAGER- AOOx3, moving all extremities, no gross focal deficit noted. Medical - PN: Obj Da - Labs CBC & Chem 7: 04/28/17 05:27 04/28/17 05:27 Labs: Abnormal Lab Results 04/27/17 04/27/17 04/26/17 05:28 05:28 05:22 RBC 3.15 L Hgb 9.3 L Hct 27.4 L Lymph % (Auto) Lymph # (Auto) 0.9 L BUN 31 H 30 H Creatinine 1.5 H 1.5 H Glucose 227 H 182 H Hemoglobin A1c Calcium Magnesium Albumin 3.1 L 3.0 L 04/26/17 04/25/17 04/25/17 05:22 03:48 03:48 RBC 3.25 L Hgb 9.6 L Hct 28.5 L Lymph % (Auto) Lymph # (Auto) 0.8 L BUN 40 H Creatinine 1.5 H Glucose 234 H Hemoglobin A1c 7.1 H Calcium 8.5 L Magnesium 1.3 L Albumin 3.1 L 04/25/17 03:48 RBC 3.49 L Hgb 10.4 L Hct 30.6 L Lymph % (Auto) 14.9 L Lymph # (Auto) 0.9 L BUN Creatinine Glucose Hemoglobin A1c Calcium Magnesium Albumin Meds: Medications Acetaminophen (Tylenol) 650 mg PO Q6HP PRN PRN Reason: PAIN/FEVER > 101 Last Admin: 04/27/17 03:46 Dose: 650 mg Albuterol/Ipratropium (Duoneb) 3 ml NEB Q4HRT PRN PRN Reason: Shortness Of Breath Or Wheezing Last Admin: 04/26/17 21:00 Dose: 3 ml Alprazolam (Xanax) 0.5 mg PO DAILYP PRN PRN Reason: Anxiety Last Admin: 04/26/17 22:04 Dose: 0.5 mg Atorvastatin Calcium (Lipitor) 20 mg PO HS [facility] Last Admin: 04/26/17 21:00 Dose: 20 mg Azithromycin (Zithromax) 250 mg PO DAILY [facility] Stop: 04/30/17 09:01 Last Admin: 04/27/17 09:12 Dose: 250 mg Bisacodyl (Dulcolax) 10 mg OR Q2-3DAYS PRN PRN Reason: Constipation Last Admin: 04/27/17 11:26 Dose: 10 mg Dextrose (Dextrose 50%) 0 ml IV UD PRN PRN Reason: Hypoglycemia Diagnostic Test (Pha) (Accu-Chek) 1 each FS ACHS [facility] Last Admin: 04/27/17 11:30 Dose: 1 each Docusate Sodium (Colace) 100 mg PO BID [facility] Heparin Sodium (Porcine) (Heparin) 5,000 unit SQ Q12 [facility] Last Admin: 04/27/17 09:09 Dose: 5,000 unit Ceftriaxone Sodium 1 gm/ (Dextrose) 50 mls @ 100 mls/hr IV Q24H [facility] Last Admin: 04/27/17 09:13 Dose: 100 mls/hr Insulin Glargine (Lantus) 10 unit SQ DAILY [facility] Last Admin: 04/27/17 09:09 Dose: 10 unit Insulin Human Lispro (Humalog) 0 unit SQ ACHS [facility] PRN Reason: Protocol Last Admin: 04/27/17 09:09 Dose: 6 unit Magnesium Hydroxide (Milk Of Magnesia) 30 ml PO DAILYP PRN PRN Reason: Constipation Naloxone HCl (Narcan) 0.1 mg IV Q2MIN PRN PRN Reason: Opiate Reversal Ondansetron HCl (Zofran) 4 mg IV Q6HP PRN PRN Reason: Nausea And Vomiting Last Admin: 04/25/17 07:13 Dose: 4 mg Oxybutynin Chloride (Ditropan) 10 mg PO BID [facility] Last Admin: 04/27/17 09:12 Dose: 10 mg Oxycodone HCl (Roxicodone) 5 mg PO Q4HP PRN PRN Reason: Pain Pantoprazole Sodium (Protonix) 40 mg PO QAMAC [facility] Last Admin: 04/27/17 08:37 Dose: 40 mg Promethazine HCl (Phenergan) 12.5 mg IV Q6HP PRN PRN Reason: Nausea And Vomiting Sertraline HCl (Zoloft) 200 mg PO DAILY [facility] Last Admin: 04/27/17 09:12 Dose: 200 mg Sodium Biphosphate/Sodium Phosphate (Fleets Adult) 1 dose OR Q3-4DAYS PRN PRN Reason: Constipation Sodium Chloride (Saline Flush) 10 ml IV Q8 [facility] Last Admin: 04/27/17 08:37 Dose: 10 ml Medical - PN: A/P - Time Spent With Patient Total time spent is greater than 50% in coordination of care (as documented) at patient's floor/unit and/or counseling patient: - Narrative A/P Narrative: A/P Pyelonephritis: still the working diagnosis, Urine cx positive for ecoli, sensitive for rocepin, given clinical picture, will get CT chest, parasite smear and [place] viris antibody. Increase the dose of rocephin to 2gms. PNA: Community acquired, mild noted on CT, resume zithromax. MADELINE on CKD: IV fluids for now, renal function nearly back to baseline. creat 1.5 DM: Glucose elevated, lantus and pre meal sliding scale for now; glucose is above goal, increase sliding scale to medium. HTN: BP stable, hold bp meds resume once bp improves. DVT hep sq Diet diabetic Full code . Medical - PN: Qual - VTE Deep Vein Thrombosis/Pulmonary Embolism Present on Admission: No
[2017-04-27] MEDS: DOCUSATE SODIUM 100 MG CAPSULE PO SCH (20:41)
[2017-04-27] MEDS: ALPRAZolam 0.5 MG TABLET PO PRN (20:41)
[2017-04-27] MEDS: ATORVASTATIN 20 MG TABLET PO SCH (20:41)
[2017-04-27] MEDS: IPRATROPIUM/ALBUTEROL 3 ML AMPUL.NEB NEB PRN (20:57)
[2017-04-28] MEDS: 0.9 % SODIUM CHLORIDE 10 ML SYRINGE IV SCH ×3 (06:13→21:23)
[2017-04-28 06:21] LABS: Basophils # (Auto) 0 K/mcL (0.0-0.3); Basophils % (Auto) 0.4 % (0.0-2.0); Eosinophils # (Auto) 0.1 K/mcL (0.0-0.7); Eosinophils % (Auto) 2.1 % (0.0-7.0); Granulocytes % (Auto) 70.8 % (38.0-78.0); Lymphocytes # (Auto) 0.9 K/mcL (1.5-4.8); Lymphocytes % (Auto) 19.1 % (15.5-49.0); Mean Cell Volume 85.9 fL (80.0-100.0); Mean Corpuscular HGB Conc 34.1 g/dL (31.0-36.0); Mean Corpuscular Hemoglobin 29.3 pg (26.0-34.0); Monocytes # (Auto) 0.4 K/mcL (0.1-0.9); Monocytes % (Auto) 7.6 % (1.0-12.0); Platelet Count 168 K/mcL (140-440); RBC 3.05 M/mcL (4.00-5.20); Red Cell Distribution Width 13.9 % (11.5-14.5)
[2017-04-28 06:39] LABS: ALT/SGPT 7 U/l (0-40); Albumin 3.2 gm/dL (3.2-5.2); Alkaline Phosphatase 81 U/L (39-117); Bilirubin,Direct < 0.2 mg/dL (0.0-0.3); Blood Urea Nitrogen 32 mg/dl (8-23); Gamma Glutamyl Transpeptidase 19 U/L (5-36); Magnesium 1.6 mg/dL (1.6-2.5); Uric Acid 7.6 mg/dL (2.5-8.0)
[2017-04-28] MEDS: INSULIN LISPRO 1 UNIT/0.01 ML UNIT SQ SCH ×4 (07:10→21:22)
[2017-04-28] MEDS: PANTOPRAZOLE 40 MG TABLET PO SCH (07:11)
[2017-04-28] MEDS: cefTRIAXone 1 GM in DEXTROSE 5% IN WATER 50 ML IV SCH (08:29)
[2017-04-28] MEDS: OXYBUTYNIN CHLORIDE 5 MG TABLET PO SCH ×2 (08:30→21:21)
[2017-04-28] MEDS: SERTRALINE 50 MG TABLET PO SCH (08:31)
[2017-04-28] MEDS: DOCUSATE SODIUM 100 MG CAPSULE PO SCH ×2 (08:31→21:21)
[2017-04-28] MEDS: HEPARIN 5,000 UNIT/ML VIAL SQ SCH ×2 (08:31→21:22)
[2017-04-28] MEDS: AZITHROMYCIN 250 MG TABLET PO SCH (08:31)
[2017-04-28] MEDS ORDERED: cefTRIAXone 1 GM in DEXTROSE 5% IN WATER 50 ML IV ONE (10:00)
[2017-04-28] MEDS ORDERED: POLYETHYLENE GLYCOL 3350 17 GM PACKET PO ONE (10:29)
--- NOTE | 2017-04-28 10:32 | Internal Med Progress Note ---
Medical - PN: Subj Patient information: Note initiated : 04/28/17 at 10:30 am Service Date, if different from initiated Date: [] Patient: Luul Barth a 62 y/o F admitted on 04/25/17 for vomiting with chills and hot flasheds. Chief Complaint: [] Interval history: Ms. Criselda Gee is a 62 year old female with h/o DM, CKD, HTN, HLD, who presents to the ER because of nause and vomiting x 2 days, abdominal discomfort x 2 days. Chills with rigors x 4 days. The patient notes that she had one episode of cough with greenish sputum approximately 1 month ago, she was seen in the urgent care clinic adn treated for same. but thinks that she never quite recovered from that. In the interim she was also diagnosed with iron def anemia by her neuro intensivist physician and was advised to be evaluated by GI, She has had an EGD, colonoscopy and a capsule endoscopy. Capsule endoscopy was done on the . The patient started feeling sick since Sunday, she had an episode of chills and rigors which lasted a few hours, She also had another bout of chills and rigors on sunday, Since sunday she has been having nausea with vomiting, and some abdominal discomfort in the epigastric region, Ruq region. The patient had chills rigors with nausea and vomiting and therefore presented to the ER for further Evaluation. She denies any other acute complaints, besides headache, she denies any urinary symptoms. In the ER she had labs which are unremarkable, except mild renal failure(h/o CKD ), She had low bp which responded well to IV fluids. UA is abnormal, CT shows perinephric stranding. She was admitted to the hospital with diagnosis of UTI./ Pyelonephritis. 04/26 Pt seen examined, no new complaints, was febrile yesterday evening, new set of blood cultres sent. Urine cx positive for ecoli, pt on rocephin. She has intermittent cough, and still has intermittent fevers and chills with rigors, responding well to tylenol. She denies h/o camping or travel outside the country. At this point the working diagnosis is pylenonephritis and UTI, will also look for another source, Chest CT and Parasite smear to be ordered, 04/27 Pt seen examined, no acute overnight events, had low grade temp again yesterday evening, which responded well to tylenol, Blood culture are neg so far , CT chest done showsw possible mild early PNA, based on interstitial changes, Zithromax added. She remains on rocphen for UTI/ Pyelonephritis. Prolactin levels continue to trend down, which is a good sign, [place] virus pending. No h/o tick bites or camping, hold off on parasite smear, Pt reports improvement , but still is very tired. 04/28: Pt seen examined, appears a bit better today, but still very tired, had low grade temp 100.2 last night at 8, she worked with PT and was very tired. She still has significant consitpation. X ray abdomen s hows that there is movement of the pill Cam. No new complaints, tolerating po well. at bedside. Plan of care updated. Labs reveiwed, procalcitonin trending down, wbc normal. Pertinent ROS: Denies headache, dizziness Denies chest pain, palpitations Denies cough or shortness of breath Denies abdominal pain, nausea or vomiting/ . Constipation present. - Constitutional Vitals: Vital Signs Temp Pulse Resp BP Pulse Ox 97.8 F 80 20 124/72 95 04/28/17 07:48 04/28/17 04:00 04/28/17 07:48 04/28/17 07:48 04/28/17 10:05 Period Temp Pulse Resp BP Sys/Saeed Pulse Ox Last 24 Hr 97.6 F-100.2 F 80-98 16-22 107-130/60-72 91-96 Intake and Output 04/27/17 04/28/17 04/28/17 21:59 05:59 13:59 Intake Total 960 / 960 600 / 600 740 / 740 Output Total 700 / 700 400 / 400 725 / 725 Balance 260 / 260 200 / 200 Weight 265 lb Intake & Output: Intake & Output 04/27/17 04/28/17 04/28/17 21:59 05:59 13:59 Intake Total 960 / 960 600 / 600 740 / 740 Output Total 700 / 700 400 / 400 725 / 725 Balance 260 / 260 200 / 200 Weight 265 lb Intake: Oral 960 / 960 600 / 600 740 / 740 Output: Void Amount 700 / 700 400 / 400 725 / 725 Other: Meal Dinner Percent of Meal Consumed 100% 50% Feeding Ability Assist with Tray Set Up # Bowel Movements 1 1 Exam: Constitutional; Afebrile, cooperative, alert, not in distress. morbidly obese Eyes- No icterus, , No periorbital swelling Ears- Ext ear normal, hearing normal to conversation. Neck- Midline trachea, supple Respiratory system: Air Entry equal on both sides, No crackles or wheezing, no rhonchi. CVS- Rate rhythm regular, S1,S2 heard, no gallop, no rub. 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 Medical - PN: Obj Da - Labs CBC & Chem 7: 04/28/17 05:27 04/28/17 05:27 Labs: Abnormal Lab Results 04/28/17 04/28/17 04/27/17 05:27 05:27 05:28 RBC 3.05 L Hgb 8.9 L Hct 26.2 L Lymph # (Auto) 0.9 L BUN 32 H 31 H Creatinine 1.5 H 1.5 H Glucose 191 H 227 H Albumin 3.1 L 04/27/17 04/26/17 04/26/17 05:28 05:22 05:22 RBC 3.15 L 3.25 L Hgb 9.3 L 9.6 L Hct 27.4 L 28.5 L Lymph # (Auto) 0.9 L 0.8 L BUN 30 H Creatinine 1.5 H Glucose 182 H Albumin 3.0 L Meds: Medications Acetaminophen (Tylenol) 650 mg PO Q6HP PRN PRN Reason: PAIN/FEVER > 101 Last Admin: 04/27/17 03:46 Dose: 650 mg Albuterol/Ipratropium (Duoneb) 3 ml NEB Q4HRT PRN PRN Reason: Shortness Of Breath Or Wheezing Last Admin: 04/27/17 20:57 Dose: 3 ml Alprazolam (Xanax) 0.5 mg PO DAILYP PRN PRN Reason: Anxiety Last Admin: 04/27/17 20:41 Dose: 0.5 mg Atorvastatin Calcium (Lipitor) 20 mg PO HS [facility] Last Admin: 04/27/17 20:41 Dose: 20 mg Azithromycin (Zithromax) 250 mg PO DAILY [facility] Stop: 04/30/17 09:01 Last Admin: 04/28/17 08:31 Dose: 250 mg Bisacodyl (Dulcolax) 10 mg RI Q2-3DAYS PRN PRN Reason: Constipation Last Admin: 04/27/17 11:26 Dose: 10 mg Dextrose (Dextrose 50%) 0 ml IV UD PRN PRN Reason: Hypoglycemia Diagnostic Test (Pha) (Accu-Chek) 1 each FS ACHS [facility] Last Admin: 04/28/17 07:10 Dose: 1 each Docusate Sodium (Colace) 100 mg PO BID [facility] Last Admin: 04/28/17 08:31 Dose: 100 mg Heparin Sodium (Porcine) (Heparin) 5,000 unit SQ Q12 [facility] Last Admin: 04/28/17 08:31 Dose: 5,000 unit Ceftriaxone Sodium 2 gm/ (Dextrose) 50 mls @ 100 mls/hr IV Q24H [facility] Insulin Glargine (Lantus) 20 unit SQ [facility] Last Admin: 04/27/17 20:42 Dose: 20 unit Insulin Human Lispro (Humalog) 0 unit SQ [facility] PRN Reason: Protocol Last Admin: 04/28/17 07:10 Dose: 4 unit Magnesium Hydroxide (Milk Of Magnesia) 30 ml PO DAILYP PRN PRN Reason: Constipation Naloxone HCl (Narcan) 0.1 mg IV Q2MIN PRN PRN Reason: Opiate Reversal Ondansetron HCl (Zofran) 4 mg IV Q6HP PRN PRN Reason: Nausea And Vomiting Last Admin: 04/25/17 07:13 Dose: 4 mg Oxybutynin Chloride (Ditropan) 10 mg PO BID [facility] Last Admin: 04/28/17 08:30 Dose: 10 mg Oxycodone HCl (Roxicodone) 5 mg PO Q4HP PRN PRN Reason: Pain Last Admin: 04/27/17 21:05 Dose: 5 mg Pantoprazole Sodium (Protonix) 40 mg PO QAMAC [facility] Last Admin: 04/28/17 07:11 Dose: 40 mg Promethazine HCl (Phenergan) 12.5 mg IV Q6HP PRN PRN Reason: Nausea And Vomiting Sertraline HCl (Zoloft) 200 mg PO DAILY [facility] Last Admin: 04/28/17 08:31 Dose: 200 mg Sodium Biphosphate/Sodium Phosphate (Fleets Adult) 1 dose RI Q3-4DAYS PRN PRN Reason: Constipation Sodium Chloride (Saline Flush) 10 ml IV Q8 [facility] Last Admin: 04/28/17 06:13 Dose: 10 ml Medical - PN: A/P - Time Spent With Patient Total time spent is greater than 50% in coordination of care (as documented) at patient's floor/unit and/or counseling patient: - Narrative A/P Narrative: A/P Pyelonephritis: still the working diagnosis, Urine cx positive for ecoli, on 2 gms rocephin, clinically she is improving well. the low grade temp in evening is a bit concerning. Fever: Low grade temp in the evening, LDH neg, blood culture is neg, Urine cx positive. but given pt has no urinary complaints other etiology was sought but was not found. LDH is neg, will get peripheral smear to look for occult blood malignancy. CT chest abdom pelvis neg for any obvious malignancy. constipation: Miralax today, failed rectal suppository. PNA: Community acquired, mild noted on CT, resume zithromax. MADELINE on CKD: IV fluids for now, renal function nearly back to baseline. creat 1.5 DM: Glucose at goal, on lantus and med scale sliding insulin. HTN: BP stable, hold bp meds resume once bp improves. DVT hep sq Diet diabetic Full code . Dispo: Medical - PN: Qual - VTE Deep Vein Thrombosis/Pulmonary Embolism Present on Admission: No
[2017-04-28] MEDS ORDERED: MAGNESIUM SULFATE 2 GM/50 ML BAG IV ONE (18:15)
[2017-04-28] MEDS: ATORVASTATIN 20 MG TABLET PO SCH (21:22)
[2017-04-28] MEDS: INSULIN GLARGINE, HUMAN 1 UNIT/0.01 ML SQ SCH (21:23)
[2017-04-28] MEDS: ALPRAZolam 0.5 MG TABLET PO PRN (21:39)
[2017-04-28] MEDS: ONDANSETRON 4 MG/2 ML VIAL IV PRN (21:40)
[2017-04-29] MEDS: 0.9 % SODIUM CHLORIDE 10 ML SYRINGE IV SCH ×3 (06:08→21:02)
[2017-04-29 07:08] LABS: Basophils # (Auto) 0 K/mcL (0.0-0.3); Basophils % (Auto) 0.6 % (0.0-2.0); Eosinophils # (Auto) 0.3 K/mcL (0.0-0.7); Granulocytes % (Auto) 62.6 % (38.0-78.0); Lymphocytes # (Auto) 1.3 K/mcL (1.5-4.8); Lymphocytes % (Auto) 24.9 % (15.5-49.0); Mean Cell Volume 87.2 fL (80.0-100.0); Mean Corpuscular HGB Conc 33.6 g/dL (31.0-36.0); Mean Corpuscular Hemoglobin 29.3 pg (26.0-34.0); Monocytes # (Auto) 0.4 K/mcL (0.1-0.9); Monocytes % (Auto) 6.9 % (1.0-12.0); Platelet Count 174 K/mcL (140-440); RBC 3.01 M/mcL (4.00-5.20); Red Cell Distribution Width 13.7 % (11.5-14.5)
[2017-04-29 07:37] LABS: ALT/SGPT 9 U/l (0-40); Albumin/Globulin Ratio 0.9 (1.0-2.3); Alkaline Phosphatase 98 U/L (39-117); Bilirubin,Direct < 0.2 mg/dL (0.0-0.3); Blood Urea Nitrogen 34 mg/dl (8-23); Gamma Glutamyl Transpeptidase 20 U/L (5-36); Magnesium 1.9 mg/dL (1.6-2.5)
[2017-04-29] MEDS: INSULIN LISPRO 1 UNIT/0.01 ML UNIT SQ SCH ×4 (07:42→20:56)
[2017-04-29] MEDS: OXYBUTYNIN CHLORIDE 5 MG TABLET PO SCH ×2 (07:54→20:55)
[2017-04-29] MEDS: DOCUSATE SODIUM 100 MG CAPSULE PO SCH ×2 (07:54→20:55)
[2017-04-29] MEDS: ACETAMINOPHEN 325 MG TABLET PO PRN (07:54)
[2017-04-29] MEDS: PANTOPRAZOLE 40 MG TABLET PO SCH (07:54)
[2017-04-29] MEDS: AZITHROMYCIN 250 MG TABLET PO SCH (07:54)
[2017-04-29] MEDS: SERTRALINE 50 MG TABLET PO SCH (07:55)
[2017-04-29] MEDS: HEPARIN 5,000 UNIT/ML VIAL SQ SCH ×2 (07:56→20:56)
--- NOTE | 2017-04-29 08:33 | XRay Report ---
CLINICAL INFORMATION: Shortness of breath and multifocal infiltrate on chest CT three days prior COMPARISON: Chest CT from 04/26/2017 and plain film from 04/25/2017 FINDINGS: The heart is mildly enlarged, but stable. Mildly enlarged central pulmonary arteries seen as before. Minimal patchy infiltrate has developed in the right base IMPRESSION: 1. Minimal infiltrate in the right base. Most of the groundglass infiltrate, seen on CT, remains radiographically occult Interpreted and Authenticated by: Fredrick Gomez 04/29/17
[2017-04-29] MEDS: PIPERACILLIN SODIUM/TAZOBACTAM 3.375 GM in DEXTROSE 5% IN WATER 50 ML IV SCH ×4 (08:44→23:37)
[2017-04-29] MEDS ORDERED: cefTRIAXone 2 GM in DEXTROSE 5% IN WATER 50 ML IV SCH (09:00)
[2017-04-29] MEDS ORDERED: FUROSEMIDE 20 MG/2 ML VIAL IV ONE (11:06)
--- NOTE | 2017-04-29 11:07 | Internal Med Progress Note ---
Medical - PN: Subj Patient information: Note initiated : 04/29/17 at 11:07 am Patient: Lulu Barth a 62 y/o F admitted on 04/25/17 for vomiting with chills and abdominal pain, UTI, ? pneumonia. Interval history: April 25, 2017: History of present illness: Ms. Criselda Gee is a 62 year old female with h/o DM, CKD, HTN, HLD, who presents to the ER because of nause and vomiting x 2 days, abdominal discomfort x 2 days. Chills with rigors x 4 days. The patient notes that she had one episode of cough with greenish sputum approximately 1 month ago, she was seen in the urgent care clinic adn treated for same. but thinks that she never quite recovered from that. In the interim she was also diagnosed with iron def anemia by her advertising director and was advised to be evaluated by GI, She has had an EGD, colonoscopy and a capsule endoscopy. Capsule endoscopy was done on the . The patient started feeling sick since Sunday, she had an episode of chills and rigors which lasted a few hours, She also had another bout of chills and rigors on sunday, Since sunday she has been having nausea with vomiting, and some abdominal discomfort in the epigastric region, Ruq region. The patient had chills rigors with nausea and vomiting and therefore presented to the ER for further Evaluation. She denies any other acute complaints, besides headache, she denies any urinary symptoms. In the ER she had labs which are unremarkable, except mild renal failure(h/o CKD ), She had low bp which responded well to IV fluids. UA is abnormal, CT shows perinephric stranding. She was admitted to the hospital with diagnosis of UTI./ Pyelonephritis. 04/26 Pt seen examined, no new complaints, was febrile yesterday evening, new set of blood cultres sent. Urine cx positive for ecoli, pt on rocephin. She has intermittent cough, and still has intermittent fevers and chills with rigors, responding well to tylenol. She denies h/o camping or travel outside the country. At this point the working diagnosis is pylenonephritis and UTI, will also look for another source, Chest CT and Parasite smear to be ordered, 04/27 Pt seen examined, no acute overnight events, had low grade temp again yesterday evening, which responded well to tylenol, Blood culture are neg so far , CT chest done shows possible mild early PNA, based on interstitial changes, Zithromax added. She remains on rocephin for UTI/ Pyelonephritis. Prolactin levels continue to trend down, which is a good sign, [place] virus pending. No h/o tick bites or camping, hold off on parasite smear, Pt reports improvement , but still is very tired. 04/28: Pt seen examined, appears a bit better today, but still very tired, had low grade temp 100.2 last night at 8, she worked with PT and was very tired. She still has significant consitpation. X ray abdomen shows that there is movement of the pill Cam. No new complaints, tolerating po well. at bedside. Plan of care updated. Labs reveiwed, procalcitonin trending down, wbc normal. April 29: The patient's chart and test results are reviewed today. last night, the nurses noted that the patient has gained quite a bit of weight since admission She is also complaining of mild dyspnea with exertion, which is probably new. She notes she has had a cough productive of green to yellow phlegmfor several weeks now. She continues to feel very weak and fatigued .she also notes she continues to feel abdominal bloating and feels like she may be constipated, although her nurses notes she had several bowel movements during the night after receiving bowel meds yesterday. otherwise, she denies fever or chills, chest pain or palpitations, nausea or vomiting, diarrhea, dysuria. - Constitutional Vitals: Vital Signs Temp Pulse Resp BP Pulse Ox 97.9 F 80 16 157/67 90 04/29/17 08:39 04/29/17 03:43 04/29/17 03:43 04/29/17 03:43 04/29/17 03:43 Period Temp Pulse Resp BP Sys/Saeed Pulse Ox Last 24 Hr 97.0 F-98.3 F 75-80 16-18 112-157/64-79 86-95 Intake and Output 04/28/17 04/29/17 04/29/17 21:59 05:59 13:59 Intake Total 1050 / 1050 600 / 600 Output Total 600 / 600 500 / 500 500 / 500 Balance 450 / 450 100 / 100 -500 / -500 Weight 273 lb 6.4 oz Intake & Output: Intake & Output 04/28/17 04/29/17 04/29/17 21:59 05:59 13:59 Intake Total 1050 / 1050 600 / 600 Output Total 600 / 600 500 / 500 500 / 500 Balance 450 / 450 100 / 100 -500 / -500 Weight 273 lb 6.4 oz Intake: Oral 1050 / 1050 600 / 600 Output: Void Amount 600 / 600 500 / 500 500 / 500 Other: Meal Dinner Percent of Meal Consumed 100% Feeding Ability Independent # Voids 1 1 # Bowel Movements 1 1 1 on exam, this is an overweight white female, who does appear quite fatigued. Review of intake and output, show she is about 3 L positive on fluid balance since admission. neck shows no obvious JVD or lymphadenopathy. Cardiac exam is regular rate and rhythm, without obvious murmurs. Lungs are essentially clear to auscultation, without obvious rales, rhonchi, wheezes. Abdomen is obese and protuberant with no significant tenderness. Extremities:Show about 1+ dependent edema. Neurologic exam: Is grossly nonfocal. Affect is a bit depressed. Medical - PN: Obj Da - Labs CBC & Chem 7: 04/29/17 05:13 04/29/17 05:13 Labs: Abnormal Lab Results 04/29/17 04/29/17 04/29/17 07:37 05:13 05:13 RBC 3.01 L Hgb 8.8 L Hct 26.3 L Lymph # (Auto) 1.3 L BUN 34 H Creatinine 1.4 H Glucose 111 H NT-Pro-B Natriuret Pep 2490.0 H Albumin 3.0 L Albumin/Globulin Ratio 0.9 L 04/28/17 04/28/17 04/27/17 05:27 05:27 05:28 RBC 3.05 L Hgb 8.9 L Hct 26.2 L Lymph # (Auto) 0.9 L BUN 32 H 31 H Creatinine 1.5 H 1.5 H Glucose 191 H 227 H NT-Pro-B Natriuret Pep Albumin 3.1 L Albumin/Globulin Ratio 04/27/17 05:28 RBC 3.15 L Hgb 9.3 L Hct 27.4 L Lymph # (Auto) 0.9 L BUN Creatinine Glucose NT-Pro-B Natriuret Pep Albumin Albumin/Globulin Ratio April 29: Chest x-ray: Shows minimal infiltrate in the right base Groundglass infiltrates that were seen on CT scan, are not visible on the chest x-ray. Central pulmonary arteries are mildly enlarged. April 27: Abdominal x-ray: 18 mm capsule endoscope was visible within the mid sigmoid colon. April 26: CT scan of the chest: Small patchy multifocal infiltrates noted in the right upper middle and lower lobes. Multiple large central pulmonary arteries suggestive of pulmonary hypertension. Moderate sized left paracentral calcified disc extrusion at T8-9. Small pericardial effusion. April 25 Blood cultures: Negative so far. April 24: CT of the abdomen without contrast: Metallic foreign body within the colon at the splenic flexure (capsule endoscopy camera). Small hiatal hernia. Small pericardial effusion. Moderate pancreatic atrophy. Mild diffuse wall thickening of the urinary bladder with possible cystitis. Tiny nonobstructing calyceal stones in both kidneys. April 24: Urine culture:grew greater than 100,000 Escherichia coli, resistant to ampicillin and tetracycline, but sensitive to Ancef, Rocephin, Cipro, nitrofurantoin, Bactrim, Zosyn Meds: Medications Acetaminophen (Tylenol) 650 mg PO Q6HP PRN PRN Reason: PAIN/FEVER > 101 Last Admin: 04/29/17 07:54 Dose: 650 mg Albuterol/Ipratropium (Duoneb) 3 ml NEB Q4HRT PRN PRN Reason: Shortness Of Breath Or Wheezing Last Admin: 04/27/17 20:57 Dose: 3 ml Alprazolam (Xanax) 0.5 mg PO DAILYP PRN PRN Reason: Anxiety Last Admin: 04/28/17 21:39 Dose: 0.5 mg Atorvastatin Calcium (Lipitor) 20 mg PO HS GLEN Last Admin: 04/28/17 21:22 Dose: 20 mg Azithromycin (Zithromax) 250 mg PO DAILY GLEN Stop: 04/30/17 09:01 Last Admin: 04/29/17 07:54 Dose: 250 mg Bisacodyl (Dulcolax) 10 mg WI Q2-3DAYS PRN PRN Reason: Constipation Last Admin: 04/27/17 11:26 Dose: 10 mg Dextrose (Dextrose 50%) 0 ml IV UD PRN PRN Reason: Hypoglycemia Diagnostic Test (Pha) (Accu-Chek) 1 each FS ACHS [facility] Last Admin: 04/29/17 07:42 Dose: 1 each Docusate Sodium (Colace) 100 mg PO BID [facility] Last Admin: 04/29/17 07:54 Dose: 100 mg Furosemide (Lasix) 20 mg IV ONCE ONE Stop: 04/29/17 11:07 Heparin Sodium (Porcine) (Heparin) 5,000 unit SQ Q12 [facility] Last Admin: 04/29/17 07:56 Dose: 5,000 unit Piperacillin Sod/Tazobactam (Sod 3.375 gm/ Dextrose) 50 mls @ 100 mls/hr IV Q6H [facility] Last Admin: 04/29/17 08:44 Dose: 100 mls/hr Insulin Glargine (Lantus) 20 unit SQ HS [facility] Last Admin: 04/28/17 21:23 Dose: 20 unit Insulin Human Lispro (Humalog) 0 unit SQ ACHS [facility] PRN Reason: Protocol Last Admin: 04/29/17 07:42 Dose: Not Given Magnesium Hydroxide (Milk Of Magnesia) 30 ml PO DAILYP PRN PRN Reason: Constipation Naloxone HCl (Narcan) 0.1 mg IV Q2MIN PRN PRN Reason: Opiate Reversal Ondansetron HCl (Zofran) 4 mg IV Q6HP PRN PRN Reason: Nausea And Vomiting Last Admin: 04/28/17 21:40 Dose: 4 mg Oxybutynin Chloride (Ditropan) 10 mg PO BID [facility] Last Admin: 04/29/17 07:54 Dose: 10 mg Oxycodone HCl (Roxicodone) 5 mg PO Q4HP PRN PRN Reason: Pain Last Admin: 04/27/17 21:05 Dose: 5 mg Pantoprazole Sodium (Protonix) 40 mg PO QAMAC [facility] Last Admin: 04/29/17 07:54 Dose: 40 mg Promethazine HCl (Phenergan) 12.5 mg IV Q6HP PRN PRN Reason: Nausea And Vomiting Sertraline HCl (Zoloft) 200 mg PO DAILY [facility] Last Admin: 04/29/17 07:55 Dose: 200 mg Sodium Chloride (Saline Flush) 10 ml IV Q8 [facility] Last Admin: 04/29/17 06:08 Dose: 10 ml Medical - PN: A/P - Time Spent With Patient Total time spent is greater than 50% in coordination of care (as documented) at patient's floor/unit and/or counseling patient: Greater than 35 minutes - Narrative A/P Narrative: #1. Infectious disease. -patient presents with abdominal pain and has a positive urine culture consistent with cystitis with or without Pyelonephritis. CT scan is also suggestive of possible basilar pneumonia. Urine is growing Escherichia coli,which is essentially pansensitive. the patient has been afebrile since yesterday. -she was continuing to have fever and mild hypoxia in the evenings for uncertain reasons.a CT scan was suggestive of possible aspiration pneumonia, so I changed to Rocephin to Zosyn, and fever seems improved today. Continue with this for now. Sputum culture was apparently not done. #2. GI. -The patient apparently has ongoing bowel symptoms withbloating and discomfort. CT scan does show some pancreatic atrophy. I wonder if she is having difficulty digesting foods. Supplementing pancreatic enzymes might be worthwhile. -constipation: Patient did have several bowel movements after yesterday's laxatives. he recently completed colonoscopy and upper endoscopy, for iron deficiency anemia. She is now awaiting results of capsule endoscopy. #3.renal. MADELINE on CKD: -she has received quite a lot of IV fluids, and BUN/creatinine creatinine are slowly improving. #4. Endocrine. DM: Glucose Still a bit labile. on lantus and med scale sliding insulin. -Continue Lipitor. Continue ARB as tolerated. She is not on aspirin, presumably due to anemia. 35. Cardiac. -HTN: BP stable, hold bp meds resume once bp improves. losartan has been held, as has HCTZ. HCTZ should probably be discontinued, as it is unlikely to be effective with her baseline renal function. -Patient does have some dyspnea, and may be volume overloaded. IV Lasix was ordered. BNP was quite elevated, and patient may have some component of CHF. Check echocardiogram. #6.DVT prophylaxis: hep sq #7.Full code . #8. Hematologic.Iron deficiency anemia. -Patient has slowly worsening anemia. This may be dilutional. Attempt diuresis , and recheck. #9. Pulmonary. Patient continues to have intermittent hypoxia and dyspnea. Chest CT is suggestive of possible pulmonary hypertension. Order echocardiogram. Consider pulmonary follow-up. #10. Psychiatric. Probable depression, given her home medications of sertraline and alprazolam. #11. . Patient takes oxybutynin, reportedly for urge incontinence. approximately 45 minutes has been spent so far today reviewing records and test results, interviewing and examining the patient, reviewing plan of care with her as well as with nursing staff. Medical - PN: Qual - VTE Deep Vein Thrombosis/Pulmonary Embolism Present on Admission: No
[2017-04-29] MEDS: ATORVASTATIN 20 MG TABLET PO SCH (20:55)
[2017-04-29] MEDS: ALPRAZolam 0.5 MG TABLET PO PRN (20:55)
[2017-04-29] MEDS: INSULIN GLARGINE, HUMAN 1 UNIT/0.01 ML SQ SCH (20:56)
[2017-04-29] MEDS: ONDANSETRON 4 MG/2 ML VIAL IV PRN (23:37)
[2017-04-30 05:27] LABS: Basophils # (Auto) 0 K/mcL (0.0-0.3); Basophils % (Auto) 0.5 % (0.0-2.0); Eosinophils # (Auto) 0.4 K/mcL (0.0-0.7); Eosinophils % (Auto) 6.2 % (0.0-7.0); Granulocytes % (Auto) 64.1 % (38.0-78.0); Lymphocytes # (Auto) 1.4 K/mcL (1.5-4.8); Lymphocytes % (Auto) 22.9 % (15.5-49.0); Mean Cell Volume 86.9 fL (80.0-100.0); Mean Corpuscular HGB Conc 33.4 g/dL (31.0-36.0); Monocytes # (Auto) 0.4 K/mcL (0.1-0.9); Monocytes % (Auto) 6.3 % (1.0-12.0); Platelet Count 229 K/mcL (140-440); RBC 3.08 M/mcL (4.00-5.20)
[2017-04-30 05:44] LABS: ALT/SGPT 9 U/l (0-40); Albumin/Globulin Ratio 0.9 (1.0-2.3); Alkaline Phosphatase 95 U/L (39-117); Bilirubin,Direct < 0.2 mg/dL (0.0-0.3); Blood Urea Nitrogen 33 mg/dl (8-23); Gamma Glutamyl Transpeptidase 19 U/L (5-36); Magnesium 1.7 mg/dL (1.6-2.5); Uric Acid 7.4 mg/dL (2.5-8.0)
[2017-04-30] MEDS: PIPERACILLIN SODIUM/TAZOBACTAM 3.375 GM in DEXTROSE 5% IN WATER 50 ML IV SCH ×4 (06:05→23:25)
[2017-04-30] MEDS: 0.9 % SODIUM CHLORIDE 10 ML SYRINGE IV SCH ×3 (06:05→23:25)
[2017-04-30] MEDS: INSULIN LISPRO 1 UNIT/0.01 ML UNIT SQ SCH ×4 (08:23→21:41)
[2017-04-30] MEDS: DOCUSATE SODIUM 100 MG CAPSULE PO SCH ×2 (08:24→21:40)
[2017-04-30] MEDS: OXYBUTYNIN CHLORIDE 5 MG TABLET PO SCH ×2 (08:24→21:40)
[2017-04-30] MEDS: HEPARIN 5,000 UNIT/ML VIAL SQ SCH ×2 (08:24→21:40)
[2017-04-30] MEDS: PANTOPRAZOLE 40 MG TABLET PO SCH (08:24)
[2017-04-30] MEDS: AZITHROMYCIN 250 MG TABLET PO SCH (08:24)
[2017-04-30] MEDS: SERTRALINE 50 MG TABLET PO SCH (08:25)
[2017-04-30] MEDS: LIPASE/PROTEASE/AMYLASE 1 CAP CAPSULE PO SCH ×3 (11:36→17:38)
--- NOTE | 2017-04-30 12:16 | Internal Med Progress Note ---
Medical - PN: Subj Patient information: Note initiated : 04/30/17 at 12:16 pm Patient: Lulu Barth a 62 y/o F admitted on 04/25/17 for vomiting with chills and hot flasheds. Interval history: April 25, 2017: History of present illness: Ms. Criselda Gee is a 62 year old female with h/o DM, CKD, HTN, HLD, who presents to the ER because of nause and vomiting x 2 days, abdominal discomfort x 2 days. Chills with rigors x 4 days. The patient notes that she had one episode of cough with greenish sputum approximately 1 month ago, she was seen in the urgent care clinic adn treated for same. but thinks that she never quite recovered from that. 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 Capsule endoscopy was done on the . The patient started feeling sick since Sunday, she had an episode of chills and rigors which lasted a few hours, She also had another bout of chills and rigors on sunday, Since sunday she has been having nausea with vomiting, and some abdominal discomfort in the epigastric region, Ruq region. The patient had chills rigors with nausea and vomiting and therefore presented to the ER for further Evaluation. She denies any other acute complaints, besides headache, she denies any urinary symptoms. In the ER she had labs which are unremarkable, except mild renal failure(h/o CKD ), She had low bp which responded well to IV fluids. UA is abnormal, CT shows perinephric stranding. She was admitted to the hospital with diagnosis of UTI./ Pyelonephritis. 04/26 Pt seen examined, no new complaints, was febrile yesterday evening, new set of blood cultres sent. Urine cx positive for ecoli, pt on rocephin. She has intermittent cough, and still has intermittent fevers and chills with rigors, responding well to tylenol. She denies h/o camping or travel outside the country. At this point the working diagnosis is pylenonephritis and UTI, will also look for another source, Chest CT and Parasite smear to be ordered, 04/27 Pt seen examined, no acute overnight events, had low grade temp again yesterday evening, which responded well to tylenol, Blood culture are neg so far , CT chest done shows possible mild early PNA, based on interstitial changes, Zithromax added. She remains on rocephin for UTI/ Pyelonephritis. Prolactin levels continue to trend down, which is a good sign, [place] virus pending. No h/o tick bites or camping, hold off on parasite smear, Pt reports improvement , but still is very tired. 04/28: Pt seen examined, appears a bit better today, but still very tired, had low grade temp 100.2 last night at 8, she worked with PT and was very tired. She still has significant consitpation. X ray abdomen shows that there is movement of the pill Cam. No new complaints, tolerating po well. at bedside. Plan of care updated. Labs reveiwed, procalcitonin trending down, wbc normal. April 29: The patient's chart and test results are reviewed today. last night, the nurses noted that the patient has gained quite a bit of weight since admission She is also complaining of mild dyspnea with exertion, which is probably new. She notes she has had a cough productive of green to yellow phlegmfor several weeks now. She continues to feel very weak and fatigued .she also notes she continues to feel abdominal bloating and feels like she may be constipated, although her nurses notes she had several bowel movements during the night after receiving bowel meds yesterday. otherwise, she denies fever or chills, chest pain or palpitations, nausea or vomiting, diarrhea, dysuria. April 30: Today, the patient notes that she walked a little with physical therapy but when she got to her room started to have a coughing spasm. She coughed so much that it made her vomit. She found that rather upsetting. Her cough is still productive, but she says her phlegm is more clear now and certainly less green and yellow. She has had some chills today. She notes occasional sharp chest pain but that is fleeting. She is not sure, but thinks her dyspnea with exertion is better than prior to diuresis. She notes she does have some palpitations after using albuterol nebulizer. She feels that her abdomen is softer since she had several bowel movements and diuresed from the IV Lasix. She is a little frustrated that how long it is taking to feel better. - Constitutional Vitals: Vital Signs Temp Pulse Resp BP Pulse Ox 98.6 F 63 20 130/64 95 04/30/17 11:50 04/30/17 07:32 04/30/17 11:50 04/30/17 11:50 04/30/17 11:50 Period Temp Pulse Resp BP Sys/Saeed Pulse Ox Last 24 Hr 97.4 F-98.6 F 63-73 12-20 130-148/61-78 87-95 Intake and Output 04/29/17 04/30/17 04/30/17 21:59 05:59 13:59 Intake Total 1989 1000 / 1000 50 / 50 Output Total 2150 / 0 1100 / 1100 1201 / 1201 Balance -160 / -160 -100 / -100 -1151 / -1151 Weight 270 lb Intake & Output: Intake & Output 04/29/17 04/30/17 04/30/17 21:59 05:59 13:59 Intake Total 1989 1000 / 1000 50 / 50 Output Total 2150 / 2150 1100 / 1100 1201 / 1201 Balance -160 / -160 -100 / -100 -1151 / -1151 Weight 270 lb Intake: IV 50 / 50 50 / 50 50 / 50 Zosyn 3.375 gm In 50 / 50 50 / 50 50 / 50 Dextrose 5% in Water 50 ml @ 100 mls/hr IV Q6H GLEN Rx#:[id number] Oral 1939 / 1940 950 / 950 Output: Void Amount 2150 / 0 1100 / 1100 1200 / 1200 # of times incontinent of 1 / 1 urine Other: Meal Watermelon cup Percent of Meal Consumed 75% Feeding Ability Independent # Voids 2 # Bowel Movements 1 # Emeses 1 on exam, she is sitting up in a chair. She is in no acute distress, but does appear fatigued. Neck is supple without obvious adenopathy. Cardiac exam shows regular rate and rhythm. Lungs:Show just a few scattered crackles, and otherwise appear clear. Abdomen is soft and nontender. Extremities show about 1+ edema. Medical - PN: Obj Da - Labs CBC & Chem 7: 04/30/17 03:45 04/30/17 03:45 Labs: Abnormal Lab Results 04/30/17 04/30/17 04/29/17 03:45 03:45 07:37 RBC 3.08 L Hgb 9.0 L Hct 26.8 L Lymph # (Auto) 1.4 L BUN 33 H Creatinine 1.6 H Glucose 141 H NT-Pro-B Natriuret Pep 2490.0 H Albumin 3.0 L Albumin/Globulin Ratio 0.9 L 04/29/17 04/29/17 04/28/17 05:13 05:13 05:27 RBC 3.01 L Hgb 8.8 L Hct 26.3 L Lymph # (Auto) 1.3 L BUN 34 H 32 H Creatinine 1.4 H 1.5 H Glucose 111 H 191 H NT-Pro-B Natriuret Pep Albumin 3.0 L Albumin/Globulin Ratio 0.9 L 04/28/17 05:27 RBC 3.05 L Hgb 8.9 L Hct 26.2 L Lymph # (Auto) 0.9 L BUN Creatinine Glucose NT-Pro-B Natriuret Pep Albumin Albumin/Globulin Ratio April 30: [place] virus studies are negative. echocardiogram: Results pending. April 29: Chest x-ray: Shows minimal infiltrate in the right base Groundglass infiltrates that were seen on CT scan, are not visible on the chest x-ray. Central pulmonary arteries are mildly enlarged. April 27: Abdominal x-ray: 18 mm capsule endoscope was visible within the mid sigmoid colon. April 26: CT scan of the chest: Small patchy multifocal infiltrates noted in the right upper middle and lower lobes. Multiple large central pulmonary arteries suggestive of pulmonary hypertension. Moderate sized left paracentral calcified disc extrusion at T8-9. Small pericardial effusion. April 25 Blood cultures: Negative so far. April 24: CT of the abdomen without contrast: Metallic foreign body within the colon at the splenic flexure (capsule endoscopy camera). Small hiatal hernia. Small pericardial effusion. Moderate pancreatic atrophy. Mild diffuse wall thickening of the urinary bladder with possible cystitis. Tiny nonobstructing calyceal stones in both kidneys. April 24: Urine culture:grew greater than 100,000 Escherichia coli, resistant to ampicillin and tetracycline, but sensitive to Ancef, Rocephin, Cipro, nitrofurantoin, Bactrim, Zosyn Meds: Medications Acetaminophen (Tylenol) 650 mg PO Q6HP PRN PRN Reason: PAIN/FEVER > 101 Last Admin: 04/29/17 07:54 Dose: 650 mg Albuterol/Ipratropium (Duoneb) 3 ml NEB Q4HRT PRN PRN Reason: Shortness Of Breath Or Wheezing Last Admin: 04/27/17 20:57 Dose: 3 ml Alprazolam (Xanax) 0.5 mg PO DAILYP PRN PRN Reason: Anxiety Last Admin: 04/29/17 20:55 Dose: 0.5 mg Lipase/Protease/Amylase (Creon) 1 cap PO TIDCC [facility] Last Admin: 04/30/17 11:49 Dose: 1 cap Atorvastatin Calcium (Lipitor) 20 mg PO HS [facility] Last Admin: 04/29/17 20:55 Dose: 20 mg Bisacodyl (Dulcolax) 10 mg [place] Q2-3DAYS PRN PRN Reason: Constipation Last Admin: 04/27/17 11:26 Dose: 10 mg Dextrose (Dextrose 50%) 0 ml IV UD PRN PRN Reason: Hypoglycemia Diagnostic Test (Pha) (Accu-Chek) 1 each FS [facility] Last Admin: 04/30/17 11:50 Dose: 1 each Docusate Sodium (Colace) 100 mg PO BID [facility] Last Admin: 04/30/17 08:24 Dose: 100 mg Heparin Sodium (Porcine) (Heparin) 5,000 unit SQ Q12 [facility] Last Admin: 04/30/17 08:24 Dose: 5,000 unit Piperacillin Sod/Tazobactam (Sod 3.375 gm/ Dextrose) 50 mls @ 100 mls/hr IV Q6H [facility] Last Admin: 04/30/17 11:50 Dose: 100 mls/hr Insulin Glargine (Lantus) 20 unit SQ [facility] Last Admin: 04/29/17 20:56 Dose: 20 unit Insulin Human Lispro (Humalog) 0 unit SQ [facility] PRN Reason: Protocol Last Admin: 04/30/17 11:50 Dose: 6 unit Magnesium Hydroxide (Milk Of Magnesia) 30 ml PO DAILYP PRN PRN Reason: Constipation Naloxone HCl (Narcan) 0.1 mg IV Q2MIN PRN PRN Reason: Opiate Reversal Ondansetron HCl (Zofran) 4 mg IV Q6HP PRN PRN Reason: Nausea And Vomiting Last Admin: 04/29/17 23:37 Dose: 4 mg Oxybutynin Chloride (Ditropan) 10 mg PO BID [facility] Last Admin: 04/30/17 08:24 Dose: 10 mg Oxycodone HCl (Roxicodone) 5 mg PO Q4HP PRN PRN Reason: Pain Last Admin: 04/27/17 21:05 Dose: 5 mg Pantoprazole Sodium (Protonix) 40 mg PO QAMAC [facility] Last Admin: 04/30/17 08:24 Dose: 40 mg Promethazine HCl (Phenergan) 12.5 mg IV Q6HP PRN PRN Reason: Nausea And Vomiting Sertraline HCl (Zoloft) 200 mg PO DAILY [facility] Last Admin: 04/30/17 08:25 Dose: 200 mg Sodium Chloride (Saline Flush) 10 ml IV Q8 [facility] Last Admin: 04/30/17 06:05 Dose: 10 ml Medical - PN: A/P - Time Spent With Patient Total time spent is greater than 50% in coordination of care (as documented) at patient's floor/unit and/or counseling patient: 25 - 35 minutes - Narrative A/P Narrative: #1. Infectious disease. -patient presents with abdominal pain and has a positive urine culture consistent with cystitis with or without Pyelonephritis. CT scan is also suggestive of possible basilar pneumonia. Urine is growing Escherichia coli,which is essentially pansensitive. the patient has been afebrile since april 28. -she was continuing to have fever and mild hypoxia in the evenings for uncertain reasons.a CT scan was suggestive of possible aspiration pneumonia, so I changed to Rocephin to Zosyn, and fever seems improved . Continue with this for now. Sputum culture was apparently not done. #2. GI. -The patient apparently has ongoing bowel symptoms with bloating and discomfort. CT scan does show some pancreatic atrophy. I wonder if she is having difficulty digesting foods. Supplementing pancreatic enzymes might be worthwhile. -constipation: Patient did have several bowel movements after laxatives. She recently completed colonoscopy and upper endoscopy, for iron deficiency anemia. She is now awaiting results of capsule endoscopy. #3.renal. MADELINE on CKD: -she has received quite a lot of IV fluids, and BUN/creatinine creatinine are slowly improving. #4. Endocrine. DM: Glucose Still a bit labile. glucoses ranging from 139-235. on lantus and med scale sliding insulin. -Continue Lipitor. Continue ARB as tolerated. She is not on aspirin, presumably due to anemia. 35. Cardiac. -HTN: BP stable, hold bp meds --resume once bp improves. losartan has been held, as has HCTZ. HCTZ should probably be discontinued, as it is unlikely to be effective with her baseline renal function. -Patient did have dyspnea, which seems improved since diuresis. Echocardiogram is pending. #6.DVT prophylaxis: hep sq #7.Full code . #8. Hematologic.Iron deficiency anemia. -Patient has slowly worsening anemia. This may be dilutional. Attempt diuresis , and recheck. #9. Pulmonary. Patient continues to have intermittent hypoxia and dyspnea. Chest CT is suggestive of possible pulmonary hypertension. echocardiogram is pending. Consider pulmonary follow-up. #10. Psychiatric. Probable depression, given her home medications of sertraline and alprazolam. #11. . Patient takes oxybutynin, reportedly for urge incontinence. approximately 35 minutes has been spent so far today reviewing records and test results, interviewing and examining the patient, reviewing plan of care with her as well as with nursing staff. Medical - PN: Qual - VTE Deep Vein Thrombosis/Pulmonary Embolism Present on Admission: No
[2017-04-30] MEDS: INSULIN GLARGINE, HUMAN 1 UNIT/0.01 ML SQ SCH (21:40)
[2017-04-30] MEDS: ATORVASTATIN 20 MG TABLET PO SCH (21:40)
[2017-05-01] MEDS: 0.9 % SODIUM CHLORIDE 10 ML SYRINGE IV SCH ×4 (05:47→22:23)
[2017-05-01] MEDS: PIPERACILLIN SODIUM/TAZOBACTAM 3.375 GM in DEXTROSE 5% IN WATER 50 ML IV SCH ×3 (05:47→17:20)
[2017-05-01] MEDS: PANTOPRAZOLE 40 MG TABLET PO SCH (07:24)
[2017-05-01] MEDS: INSULIN LISPRO 1 UNIT/0.01 ML UNIT SQ SCH ×4 (07:26→21:09)
[2017-05-01 07:57] LABS: ALT/SGPT 8 U/l (0-40); Albumin 3.1 gm/dL (3.2-5.2); Albumin/Globulin Ratio 0.9 (1.0-2.3); Alkaline Phosphatase 87 U/L (39-117); Basophils # (Auto) 0 K/mcL (0.0-0.3); Basophils % (Auto) 0.4 % (0.0-2.0); Bilirubin,Direct < 0.2 mg/dL (0.0-0.3); Blood Urea Nitrogen 28 mg/dl (8-23); Eosinophils # (Auto) 0.3 K/mcL (0.0-0.7); Eosinophils % (Auto) 5.6 % (0.0-7.0); Gamma Glutamyl Transpeptidase 18 U/L (5-36); Granulocytes % (Auto) 65.1 % (38.0-78.0); Lymphocytes # (Auto) 1.3 K/mcL (1.5-4.8); Lymphocytes % (Auto) 22.6 % (15.5-49.0); Magnesium 1.7 mg/dL (1.6-2.5); Mean Cell Volume 87.6 fL (80.0-100.0); Mean Corpuscular HGB Conc 33.4 g/dL (31.0-36.0); Mean Corpuscular Hemoglobin 29.3 pg (26.0-34.0); Monocytes # (Auto) 0.4 K/mcL (0.1-0.9); Monocytes % (Auto) 6.3 % (1.0-12.0); Platelet Count 257 K/mcL (140-440); RBC 3.13 M/mcL (4.00-5.20); Red Cell Distribution Width 13.9 % (11.5-14.5); Uric Acid 6.6 mg/dL (2.5-8.0)
[2017-05-01] MEDS: OXYBUTYNIN CHLORIDE 5 MG TABLET PO SCH ×2 (08:38→21:10)
[2017-05-01] MEDS: LIPASE/PROTEASE/AMYLASE 1 CAP CAPSULE PO SCH ×3 (08:38→17:20)
[2017-05-01] MEDS: SERTRALINE 50 MG TABLET PO SCH (08:38)
[2017-05-01] MEDS: DOCUSATE SODIUM 100 MG CAPSULE PO SCH ×2 (08:39→21:22)
[2017-05-01] MEDS: HEPARIN 5,000 UNIT/ML VIAL SQ SCH ×2 (08:39→21:22)
--- NOTE | 2017-05-01 10:20 | Internal Med Progress Note ---
Medical - PN: Subj Patient information: Note initiated : 05/01/17 at 10:20 am Patient: Lulu Barth a 62 y/o F admitted on 04/25/17 for vomiting with chills and hot flasheds. Interval history: April 25, 2017: History of present illness: Ms. Criselda Gee is a 62 year old female with h/o DM, CKD, HTN, HLD, who presents to the ER because of nause and vomiting x 2 days, abdominal discomfort x 2 days. Chills with rigors x 4 days. The patient notes that she had one episode of cough with greenish sputum approximately 1 month ago, she was seen in the urgent care clinic adn treated for same. but thinks that she never quite recovered from that. In the interim she was also diagnosed with iron def anemia by her gas leak inspector helper and was advised to be evaluated by GI, She has had an EGD, colonoscopy and a capsule endoscopy. Capsule endoscopy was done on the . The patient started feeling sick since Sunday, she had an episode of chills and rigors which lasted a few hours, She also had another bout of chills and rigors on sunday, Since sunday she has been having nausea with vomiting, and some abdominal discomfort in the epigastric region, Ruq region. The patient had chills rigors with nausea and vomiting and therefore presented to the ER for further Evaluation. She denies any other acute complaints, besides headache, she denies any urinary symptoms. In the ER she had labs which are unremarkable, except mild renal failure(h/o CKD ), She had low bp which responded well to IV fluids. UA is abnormal, CT shows perinephric stranding. She was admitted to the hospital with diagnosis of UTI./ Pyelonephritis. 04/26 Pt seen examined, no new complaints, was febrile yesterday evening, new set of blood cultres sent. Urine cx positive for ecoli, pt on rocephin. She has intermittent cough, and still has intermittent fevers and chills with rigors, responding well to tylenol. She denies h/o camping or travel outside the country. At this point the working diagnosis is pylenonephritis and UTI, will also look for another source, Chest CT and Parasite smear to be ordered, 04/27 Pt seen examined, no acute overnight events, had low grade temp again yesterday evening, which responded well to tylenol, Blood culture are neg so far , CT chest done shows possible mild early PNA, based on interstitial changes, Zithromax added. She remains on rocephin for UTI/ Pyelonephritis. Prolactin levels continue to trend down, which is a good sign, [place] nile virus pending. No h/o tick bites or camping, hold off on parasite smear, Pt reports improvement , but still is very tired. 04/28: Pt seen examined, appears a bit better today, but still very tired, had low grade temp 100.2 last night at 8, she worked with PT and was very tired. She still has significant consitpation. X ray abdomen shows that there is movement of the pill Cam. No new complaints, tolerating po well. at bedside. Plan of care updated. Labs reveiwed, procalcitonin trending down, wbc normal. April 29: The patient's chart and test results are reviewed today. last night, the nurses noted that the patient has gained quite a bit of weight since admission She is also complaining of mild dyspnea with exertion, which is probably new. She notes she has had a cough productive of green to yellow phlegmfor several weeks now. She continues to feel very weak and fatigued .she also notes she continues to feel abdominal bloating and feels like she may be constipated, although her nurses notes she had several bowel movements during the night after receiving bowel meds yesterday. otherwise, she denies fever or chills, chest pain or palpitations, nausea or vomiting, diarrhea, dysuria. April 30: Today, the patient notes that she walked a little with physical therapy but when she got to her room started to have a coughing spasm. She coughed so much that it made her vomit. She found that rather upsetting. Her cough is still productive, but she says her phlegm is more clear now and certainly less green and yellow. She has had some chills today. She notes occasional sharp chest pain but that is fleeting. She is not sure, but thinks her dyspnea with exertion is better than prior to diuresis. She notes she does have some palpitations after using albuterol nebulizer. She feels that her abdomen is softer since she had several bowel movements and diuresed from the IV Lasix. She is a little frustrated that how long it is taking to feel better. May 01: Today, the patient notes she is feeling better. She is having less dyspnea with exertion. She forced herself to walk all the way to the cafeteria and back, with just a gait belt for support. She is feeling quite fatigued at the moment. Her is in the room with her today, and they both reiterate that she would much rather go straight home, then try to go to rehab first. Otherwise, she denies fever or chills. Cough is productive mainly of clear phlegm. She denies chest pain or palpitations. Dyspnea on exertion is improving. She denies abdominal pain, nausea or vomiting, diarrhea or constipation. She says her nurses note that she probably has sleep apnea, as she does desaturate with sleep. - Constitutional Vitals: Vital Signs Temp Pulse Resp BP Pulse Ox 96.8 F L 78 18 145/75 92 05/01/17 07:46 05/01/17 04:00 05/01/17 07:46 05/01/17 07:46 05/01/17 07:22 Period Temp Pulse Resp BP Sys/Saeed Pulse Ox Last 24 Hr 96.8 F-98.9 F 71-78 18-20 121-145/64-75 88-98 Intake and Output 04/30/17 05/01/17 05/01/17 21:59 05:59 13:59 Intake Total 1090 / 1090 290 / 290 Output Total 1150 / 1150 1500 / 1500 800 / 800 Balance -60 / -60 -1210 / -1210 -800 / -800 Weight 268 lb 14.4 oz Intake & Output: Intake & Output 04/30/17 05/01/17 05/01/17 21:59 05:59 13:59 Intake Total 1090 / 1090 290 / 290 Output Total 1150 / 1150 1500 / 1500 800 / 800 Balance -60 / -60 -1210 / -1210 -800 / -800 Weight 268 lb 14.4 oz Intake: IV 50 / 50 50 / 50 Zosyn 3.375 gm In 50 / 50 50 / 50 Dextrose 5% in Water 50 ml @ 100 mls/hr IV Q6H [facility] Rx#:[id number] Oral 1040 / 1040 240 / 240 Output: Void Amount 1150 / 1150 1500 / 1500 800 / 800 Other: Meal Dinner Percent of Meal Consumed 75% Feeding Ability Independent # Voids 2 # Bowel Movements 1 1 On exam, she is sitting in her chair. She appears fatigued, but in pretty good spirits. Neck shows no obvious JVD. Cardiac exam shows regular rate and rhythm. Lungs: She has a few scattered crackles, but otherwise lungs are clear, without rhonchi or wheezes. Abdomen: Is soft and nontender. Extremities: Show mild edema. Neurologic: Is grossly nonfocal. Medical - PN: Obj Da - Labs CBC & Chem 7: 05/01/17 05:22 05/01/17 05:22 Labs: Abnormal Lab Results 05/01/17 05/01/17 04/30/17 05:22 05:22 03:45 RBC 3.13 L Hgb 9.2 L Hct 27.4 L Lymph # (Auto) 1.3 L BUN 28 H 33 H Creatinine 1.6 H 1.6 H Glucose 143 H 141 H NT-Pro-B Natriuret Pep Albumin 3.1 L 3.0 L Albumin/Globulin Ratio 0.9 L 0.9 L 04/30/17 04/29/17 04/29/17 03:45 07:37 05:13 RBC 3.08 L Hgb 9.0 L Hct 26.8 L Lymph # (Auto) 1.4 L BUN 34 H Creatinine 1.4 H Glucose 111 H NT-Pro-B Natriuret Pep 2490.0 H Albumin 3.0 L Albumin/Globulin Ratio 0.9 L 04/29/17 05:13 RBC 3.01 L Hgb 8.8 L Hct 26.3 L Lymph # (Auto) 1.3 L BUN Creatinine Glucose NT-Pro-B Natriuret Pep Albumin Albumin/Globulin Ratio May 01: Albumin is low at 3.1. Otherwise LFTs are within normal limits. April 30: [place] virus studies are negative. Sputum culture shows no growth so far. echocardiogram: Results pending. April 29: Chest x-ray: Shows minimal infiltrate in the right base Groundglass infiltrates that were seen on CT scan, are not visible on the chest x-ray. Central pulmonary arteries are mildly enlarged. April 27: Abdominal x-ray: 18 mm capsule endoscope was visible within the mid sigmoid colon. April 26: CT scan of the chest: Small patchy multifocal infiltrates noted in the right upper middle and lower lobes. Multiple large central pulmonary arteries suggestive of pulmonary hypertension. Moderate sized left paracentral calcified disc extrusion at T8-9. Small pericardial effusion. April 25 Blood cultures: Negative . April 24: CT of the abdomen without contrast: Metallic foreign body within the colon at the splenic flexure (capsule endoscopy camera). Small hiatal hernia. Small pericardial effusion. Moderate pancreatic atrophy. Mild diffuse wall thickening of the urinary bladder with possible cystitis. Tiny nonobstructing calyceal stones in both kidneys. Urine culture:grew greater than 100,000 Escherichia coli, resistant to ampicillin and tetracycline, but sensitive to Ancef, Rocephin, Cipro, nitrofurantoin, Bactrim, Zosyn Meds: Medications Acetaminophen (Tylenol) 650 mg PO Q6HP PRN PRN Reason: PAIN/FEVER > 101 Last Admin: 04/29/17 07:54 Dose: 650 mg Albuterol/Ipratropium (Duoneb) 3 ml NEB Q4HRT PRN PRN Reason: Shortness Of Breath Or Wheezing Last Admin: 04/27/17 20:57 Dose: 3 ml Alprazolam (Xanax) 0.5 mg PO DAILYP PRN PRN Reason: Anxiety Last Admin: 04/29/17 20:55 Dose: 0.5 mg Lipase/Protease/Amylase (Creon) 1 cap PO TIDCC [facility] Last Admin: 05/01/17 08:38 Dose: 1 cap Atorvastatin Calcium (Lipitor) 20 mg PO HS [facility] Last Admin: 04/30/17 21:40 Dose: 20 mg Bisacodyl (Dulcolax) 10 mg GA Q2-3DAYS PRN PRN Reason: Constipation Last Admin: 04/27/17 11:26 Dose: 10 mg Dextrose (Dextrose 50%) 0 ml IV UD PRN PRN Reason: Hypoglycemia Diagnostic Test (Pha) (Accu-Chek) 1 each FS ACHS [facility] Last Admin: 05/01/17 07:24 Dose: 1 each Docusate Sodium (Colace) 100 mg PO BID [facility] Last Admin: 05/01/17 08:39 Dose: Not Given Heparin Sodium (Porcine) (Heparin) 5,000 unit SQ Q12 [facility] Last Admin: 05/01/17 08:39 Dose: Not Given Piperacillin Sod/Tazobactam (Sod 3.375 gm/ Dextrose) 50 mls @ 100 mls/hr IV Q6H [facility] Last Admin: 05/01/17 05:47 Dose: 100 mls/hr Insulin Glargine (Lantus) 20 unit SQ HS [facility] Last Admin: 04/30/17 21:40 Dose: 20 unit Insulin Human Lispro (Humalog) 0 unit SQ ACHS GLEN PRN Reason: Protocol Last Admin: 05/01/17 07:26 Dose: 2 unit Magnesium Hydroxide (Milk Of Magnesia) 30 ml PO DAILYP PRN PRN Reason: Constipation Naloxone HCl (Narcan) 0.1 mg IV Q2MIN PRN PRN Reason: Opiate Reversal Ondansetron HCl (Zofran) 4 mg IV Q6HP PRN PRN Reason: Nausea And Vomiting Last Admin: 04/29/17 23:37 Dose: 4 mg Oxybutynin Chloride (Ditropan) 10 mg PO BID [facility] Last Admin: 05/01/17 08:38 Dose: 10 mg Oxycodone HCl (Roxicodone) 5 mg PO Q4HP PRN PRN Reason: Pain Last Admin: 04/27/17 21:05 Dose: 5 mg Pantoprazole Sodium (Protonix) 40 mg PO QAMAC [facility] Last Admin: 05/01/17 07:24 Dose: 40 mg Promethazine HCl (Phenergan) 12.5 mg IV Q6HP PRN PRN Reason: Nausea And Vomiting Sertraline HCl (Zoloft) 200 mg PO DAILY [facility] Last Admin: 05/01/17 08:38 Dose: 200 mg Sodium Chloride (Saline Flush) 10 ml IV Q8 [facility] Last Admin: 05/01/17 05:47 Dose: 10 ml Medical - PN: A/P - Time Spent With Patient Total time spent is greater than 50% in coordination of care (as documented) at patient's floor/unit and/or counseling patient: 25 - 35 minutes - Narrative A/P Narrative: #1. Infectious disease. -patient presents with abdominal pain and has a positive urine culture consistent with cystitis with or without Pyelonephritis. CT scan is also suggestive of possible basilar pneumonia. Urine is growing Escherichia coli,which is essentially pansensitive. the patient has been afebrile since april 28. -she was continuing to have fever and mild hypoxia in the evenings for uncertain reasons.a CT scan was suggestive of possible aspiration pneumonia, so I changed to Rocephin to Zosyn, and fever seems improved . Continue with this for now. Sputum culture is still pending, but was obtained after antibiotics were started. #2. GI. -The patient apparently has ongoing bowel symptoms with bloating and discomfort. CT scan does show some pancreatic atrophy. I wonder if she is having difficulty digesting foods. A trial of pancreatic enzymes was started. -constipation: Patient did have several bowel movements after laxatives. She recently completed colonoscopy and upper endoscopy, for iron deficiency anemia. She is now awaiting results of capsule endoscopy. #3.renal. MADELINE on CKD: -she has received quite a lot of IV fluids, and BUN/creatinine creatinine are slowly improving. She is now receiving IV Lasix, for excess fluid gain, and is responding well to that. #4. Endocrine. DM: Glucose Still a bit labile. glucoses ranging from 130-178. on lantus and med scale sliding insulin. -Continue Lipitor. Continue ARB as tolerated. She is not on aspirin, presumably due to anemia. 35. Cardiac. -HTN: Losartan and HCTZ were held on admission. HCTZ should be discontinued regarding renal function and diabetes, but I will add losartan back today. -Patient did have dyspnea, which seems improved since diuresis. Echocardiogram is pending. 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 #6.DVT prophylaxis: hep sq #7.Full code . #8. Hematologic.Iron deficiency anemia. -Patient has slowly worsening anemia. This may be partly dilutional. #9. Pulmonary. Patient continues to have intermittent hypoxia and dyspnea. Chest CT is suggestive of possible pulmonary hypertension. echocardiogram is pending. - Consider pulmonary follow-up. She will need outpatient referral. #10. Psychiatric. Probable depression, given her home medications of sertraline and alprazolam. #11. . Patient takes oxybutynin, reportedly for urge incontinence. Disposition: The patient appears improved enough, to leave the acute care setting. Social work is working on setting up home IV antibiotics, as patient prefers to go home rather than to rehab. She will likely require home physical therapy until she is stronger. approximately 35 minutes has been spent so far today reviewing records and test results, interviewing and examining the patient, reviewing plan of care with her , as well as her , as well as with staff. Medical - PN: Qual - VTE Deep Vein Thrombosis/Pulmonary Embolism Present on Admission: No
[2017-05-01] MEDS: INSULIN GLARGINE, HUMAN 1 UNIT/0.01 ML SQ SCH (21:09)
[2017-05-01] MEDS: ATORVASTATIN 20 MG TABLET PO SCH (21:10)
[2017-05-02] MEDS: PIPERACILLIN SODIUM/TAZOBACTAM 3.375 GM in DEXTROSE 5% IN WATER 50 ML IV SCH ×3 (00:30→11:48)
[2017-05-02] MEDS: 0.9 % SODIUM CHLORIDE 10 ML SYRINGE IV SCH (05:23)
[2017-05-02 06:14] LABS: Basophils # (Auto) 0 K/mcL (0.0-0.3); Basophils % (Auto) 0.3 % (0.0-2.0); Eosinophils # (Auto) 0.4 K/mcL (0.0-0.7); Eosinophils % (Auto) 5.9 % (0.0-7.0); Granulocytes % (Auto) 65.7 % (38.0-78.0); Lymphocytes # (Auto) 1.4 K/mcL (1.5-4.8); Lymphocytes % (Auto) 21.9 % (15.5-49.0); Mean Corpuscular HGB Conc 33.3 g/dL (31.0-36.0); Mean Corpuscular Hemoglobin 29.3 pg (26.0-34.0); Monocytes # (Auto) 0.4 K/mcL (0.1-0.9); Monocytes % (Auto) 6.2 % (1.0-12.0); Platelet Count 295 K/mcL (140-440); RBC 3.26 M/mcL (4.00-5.20); Red Cell Distribution Width 13.9 % (11.5-14.5)
[2017-05-02 06:54] LABS: ALT/SGPT 9 U/l (0-40); Albumin 3.4 gm/dL (3.2-5.2); Alkaline Phosphatase 85 U/L (39-117); Bilirubin,Direct < 0.2 mg/dL (0.0-0.3); Blood Urea Nitrogen 25 mg/dl (8-23); Gamma Glutamyl Transpeptidase 20 U/L (5-36); Magnesium 1.6 mg/dL (1.6-2.5); Uric Acid 6.2 mg/dL (2.5-8.0)
[2017-05-02] MEDS: PANTOPRAZOLE 40 MG TABLET PO SCH (07:24)
[2017-05-02] MEDS: INSULIN LISPRO 1 UNIT/0.01 ML UNIT SQ SCH ×2 (07:25→11:47)
[2017-05-02] MEDS: OXYBUTYNIN CHLORIDE 5 MG TABLET PO SCH (08:25)
[2017-05-02] MEDS: LIPASE/PROTEASE/AMYLASE 1 CAP CAPSULE PO SCH ×2 (08:25→12:03)
[2017-05-02] MEDS: HEPARIN 5,000 UNIT/ML VIAL SQ SCH (08:59)
[2017-05-02] MEDS: DOCUSATE SODIUM 100 MG CAPSULE PO SCH (08:59)
[2017-05-02] MEDS ORDERED: LOSARTAN 25 MG TABLET PO SCH (09:00)
[2017-05-02] MEDS: SERTRALINE 50 MG TABLET PO SCH (09:19)
[2017-05-02] MEDS: ONDANSETRON 4 MG/2 ML VIAL IV PRN (09:59)
--- NOTE | 2017-05-02 12:20 | Discharge Summary ---
Medical - DS: Prov Patient information: Note initiated : 05/02/17 at 12:12 pm Service Date, if different from initiated Date: [] Patient: Lulu Barth 62 y/o F admitted on 04/25/17 for vomiting with chills and hot flasheds. Chief Complaint: [] Date of admission: 04/25/17 02:21 Discharge date: 05/02/17 Primary care physician: Bri Ryder NP, phone number [phone] Admitting clinician: Arias Clraos Attending physician on discharge: Donna Lozano Medical - DS: Meds - Discharge Medications Prescriptions: Albuterol Sulfate [Proair Hfa] 8.5 gm IH Q4HP PRN #1 [id number] PRN Reason: Shortness Of Breath Or Wheezing Furosemide [Lasix] 20 mg PO QAM #30 tablet Lipase/Protease/Amylase [Creon] 1 cap PO TIDCC #90 capsule Piperacillin Sodium/Tazobactam [Zosyn 3.375 Gram Vial] 3.375 gm IV Q6H #12 vial Active and Home Medications: Discharge medications: Zosyn IV, equivalent of 3.375 g every 6 hours, for 3 more days. Lasix/furosemide 20 mg each morning, for blood pressure and edema. This will replace HCTZ. Albuterol inhaler 2 puffs every 4 hours as needed Atorvastatin 20 mg nightly Colace 100 mg twice daily as needed Levemir 22 units nightly NovoLog 5 units subcu twice daily with meals Creon pancreatic enzymes 1 3 times daily with meals, regarding chronic bloating and possible pancreatic atrophy Losartan 25 mg daily Ditropan 10 mg p.o. twice daily Sertraline 200 mg daily Promethazine DM syrup 5 mL every 6 hours as needed cough Omeprazole 20 mg daily Xanax 0.5 mg daily as needed anxiety Stop HCTZ. Previous home Medications ALPRAZolam [Xanax] 0.5 mg PO DAILYP PRN 04/10/17 [History Confirmed 04/24/17 Last Taken 04/09/17 20:00] Atorvastatin [Lipitor] 20 mg PO HS 04/10/17 [History Confirmed 04/24/17 Last Taken 04/09/17 20:00] Hydrochlorothiazide [Oretic] 25 mg PO DAILY 04/10/17 [History Confirmed Last Taken 04/10/17 09:00] Losartan [Cozaar] 25 mg PO DAILY 04/10/17 [History Confirmed 04/24/17 Last Taken 04/10/17 09:00] Omeprazole 20 mg PO DAILY 04/10/17 [History Confirmed 04/24/17 Last Taken 09:00] Oxybutynin Chloride [Ditropan] 10 mg PO BID 04/10/17 [History Confirmed Last Taken 04/10/17 08:00] Sertraline [Zoloft] 200 mg PO DAILY 04/10/17 [History Confirmed 04/24/17 Last Taken 04/09/17 20:00] Promethazine-Dm Syrup 5 ml PO Q6HP PRN 04/13/17 [History Confirmed 04/24/17 Last Taken Unknown] Insulin Aspart [Novolog] 5 units SQ BID 04/24/17 [History Confirmed 04/24/17 Last Taken Unknown] Levemir 22 units SQ HS 04/24/17 [History Confirmed 04/24/17 Last Taken Unknown] Medical - DS: [facility] Hospital course: Mr. Criselda Gee is a 62 year old F April 25, 2017: History of present illness: Ms. Criselda Gee is a 62 year old female with h/o DM, CKD, HTN, HLD, who presents to the ER because of nause and vomiting x 2 days, abdominal discomfort x 2 days. Chills with rigors x 4 days. The patient notes that she had one episode of cough with greenish sputum approximately 1 month ago, she was seen in the urgent care clinic adn treated for same. but thinks that she never quite recovered from that. In the interim she was also diagnosed with iron def anemia by her balloon pilot and was advised to be evaluated by GI, She has had an EGD, colonoscopy and a capsule endoscopy. Capsule endoscopy was done on the . The patient started feeling sick since Sunday, she had an episode of chills and rigors which lasted a few hours, She also had another bout of chills and rigors on sunday, Since sunday she has been having nausea with vomiting, and some abdominal discomfort in the epigastric region, Ruq region. The patient had chills rigors with nausea and vomiting and therefore presented to the ER for further Evaluation. She denies any other acute complaints, besides headache, she denies any urinary symptoms. In the ER she had labs which are unremarkable, except mild renal failure(h/o CKD ), She had low bp which responded well to IV fluids. UA is abnormal, CT shows perinephric stranding. She was admitted to the hospital with diagnosis of UTI./ Pyelonephritis. 04/26 Pt seen examined, no new complaints, was febrile yesterday evening, new set of blood cultres sent. Urine cx positive for ecoli, pt on rocephin. She has intermittent cough, and still has intermittent fevers and chills with rigors, responding well to tylenol. She denies h/o camping or travel outside the country. At this point the working diagnosis is pylenonephritis and UTI, will also look for another source, Chest CT and Parasite smear to be ordered, 04/27 Pt seen examined, no acute overnight events, had low grade temp again yesterday evening, which responded well to tylenol, Blood culture are neg so far , CT chest done shows possible mild early PNA, based on interstitial changes, Zithromax added. She remains on rocephin for UTI/ Pyelonephritis. Prolactin levels continue to trend down, which is a good sign, [place] virus pending. No h/o tick bites or camping, hold off on parasite smear, Pt reports improvement , but still is very tired. 04/28: Pt seen examined, appears a bit better today, but still very tired, had low grade temp 100.2 last night at 8, she worked with PT and was very tired. She still has significant consitpation. X ray abdomen shows that there is movement of the pill Cam. No new complaints, tolerating po well. at bedside. Plan of care updated. Labs reveiwed, procalcitonin trending down, wbc normal. April 29: The patient's chart and test results are reviewed today. last night, the nurses noted that the patient has gained quite a bit of weight since admission She is also complaining of mild dyspnea with exertion, which is probably new. She notes she has had a cough productive of green to yellow phlegmfor several weeks now. She continues to feel very weak and fatigued .she also notes she continues to feel abdominal bloating and feels like she may be constipated, although her nurses notes she had several bowel movements during the night after receiving bowel meds yesterday. otherwise, she denies fever or chills, chest pain or palpitations, nausea or vomiting, diarrhea, dysuria. April 30: Today, the patient notes that she walked a little with physical therapy but when she got to her room started to have a coughing spasm. She coughed so much that it made her vomit. She found that rather upsetting. Her cough is still productive, but she says her phlegm is more clear now and certainly less green and yellow. She has had some chills today. She notes occasional sharp chest pain but that is fleeting. She is not sure, but thinks her dyspnea with exertion is better than prior to diuresis. She notes she does have some palpitations after using albuterol nebulizer. She feels that her abdomen is softer since she had several bowel movements and diuresed from the IV Lasix. She is a little frustrated that how long it is taking to feel better. May 01: Today, the patient notes she is feeling better. She is having less dyspnea with exertion. She forced herself to walk all the way to the cafeteria and back, with just a gait belt for support. She is feeling quite fatigued at the moment. Her is in the room with her today, and they both reiterate that she would much rather go straight home, then try to go to rehab first. Otherwise, she denies fever or chills. Cough is productive mainly of clear phlegm. She denies chest pain or palpitations. Dyspnea on exertion is improving. She denies abdominal pain, nausea or vomiting, diarrhea or constipation. She says her nurses note that she probably has sleep apnea, as she does desaturate with sleep. May 02: This 62-year-old female was admitted with nausea, vomiting, abdominal pain, and fever. Initially it was thought she had cystitis with possible Twin. Urine culture did grow out E. coli. However the patient did not respond quickly to therapy. Follow-up chest CT did show infiltrates in the right upper lobe, right middle lobe, left lower lobe, presumably multifocal pneumonia. Antibiotics were then switched from Rocephin over to Zosyn, to cover both the UTI and possible aspiration pneumonia. She also received 4 days of Zithromax. The patient has had moderate dyspnea with exertion throughout her stay, and often drops her O2 saturations both with sleep, and with exertion. This has gradually gotten better over the course of her stay, but she still definitely has dyspnea with significant exertion. He has had a cough for several weeks, productive of green and yellow phlegm. She still has a productive cough but phlegm is now mostly clear. She is feeling less short of breath, and think she will do okay at home without nebulized albuterol, which causes her to feel tremulous, and oxygen. She will be sent home on IV antibiotics, as she declined transfer to rehab. We will set her up for home health evaluation as well, and she will likely need home physical therapy. -She also is recently status post upper and lower endoscopies, and capsule endoscopy. This was being done to workup her iron deficiency anemia. -She has had ongoing complaints of abdominal bloating and discomfort. CT scan was previously suggestive of pancreatic atrophy, so Creon enzyme supplement was added. -She presented with acute kidney injury, and this improved after IV fluids. -She then appeared to develop volume overload, and had gained quite a bit of weight. She was diuresed with IV Lasix, and that did improve both her swelling and her breathing. -Staff feels that she likely has undiagnosed sleep apnea. CT scan also was suggestive of pulmonary hypertension. On exam, she is sitting up in a chair. She appears fatigued, and says she is quite tired, as she did not sleep very well last night. She seems to be a little anxious about the idea of not having oxygen on anymore, even though her room air saturations are fine. Neck shows no obvious JVD. Cardiac exam shows regular rate and rhythm. Lungs: She has a few scattered crackles, but otherwise lungs are clear, without rhonchi or wheezes. Abdomen: Is soft and nontender. Extremities: Show mild edema. Neurologic: Is grossly nonfocal. Assessment and plan: #1. Infectious disease. -patient presents with abdominal pain and has a positive urine culture consistent with cystitis with or without Pyelonephritis. CT scan is also suggestive of possible basilar pneumonia. Urine is growing Escherichia coli,which is essentially pansensitive. the patient has been afebrile since april 28. -she was continuing to have fever and mild hypoxia in the evenings for uncertain reasons.a CT scan was suggestive of possible aspiration pneumonia, so I changed to Rocephin to Zosyn, and fever seems improved . Continue Zosyn at home for 3 more days, to complete a 10 day course. Sputum culture is still pending, but was obtained after antibiotics were started. #2. GI. -The patient apparently has ongoing bowel symptoms with bloating and discomfort. CT scan does show some pancreatic atrophy. I wonder if she is having difficulty digesting foods. A trial of pancreatic enzymes was started. -constipation: Patient did have several bowel movements after laxatives. She recently completed colonoscopy and upper endoscopy, for iron deficiency anemia. She is now awaiting results of capsule endoscopy. #3.renal. MADELINE on CKD: -she has received quite a lot of IV fluids, and BUN/creatinine creatinine are slowly improving. She received IV Lasix, for excess fluid gain, and is responding well to that. #4. Endocrine. DM: Glucose Still a bit labile. glucoses ranging from 80-236. Resume home doses of Levemir and NovoLog. -Continue Lipitor. Continue ARB as tolerated. She is not on aspirin, presumably due to anemia. 35. Cardiac. -HTN: Losartan and HCTZ were held on admission. HCTZ should be discontinued regarding renal function and diabetes, but I added back the losartan. I also added Lasix today, in place of the HCTZ, for some ongoing mild edema. -Labs and blood pressure should be monitored. -Patient did have dyspnea, which seems improved since diuresis. Echocardiogram is pending. There apparently is a problem with bankruptcy legal assistant. Her primary care physician should call for this report, as it should be ready soon. There is concern for pulmonary hypertension. #6.DVT prophylaxis: hep sq #7.Full code . #8. Hematologic.Iron deficiency anemia. -Patient has slowly worsening anemia. This may be partly dilutional. #9. Pulmonary. Patient continues to have intermittent hypoxia and dyspnea. Chest CT is suggestive of possible pulmonary hypertension. echocardiogram is pending. - Consider pulmonary follow-up. She will need outpatient referral. #10. Psychiatric. Probable depression, given her home medications of sertraline and alprazolam. #11. . Patient takes oxybutynin, reportedly for urge incontinence. Disposition: The patient appears improved enough, to leave the acute care setting. Social work is working on setting up home IV antibiotics, as patient prefers to go home rather than to rehab. She will likely require home physical therapy until she is stronger. approximately 35 minutes has been spent so far today reviewing records and test results, interviewing and examining the patient, reviewing plan of care with her , as well as her , as well as with staff. Discharge diagnosis: Multifocal pneumonia. Acute renal failure. Volume overload. Secondary discharge diagnosis: Possible occult sleep apnea and possible occult pulmonary artery hypertension. - Time Spent with Patient Total time spent providing and/or coordinating discharge services: Medical - DS: Exam - Constitutional Vitals: Vital Signs Temp Pulse Resp BP BP BP Pulse Ox 05/02/17 07:33 96.6 F L 20 148/67 93 05/02/17 07:28 94 05/02/17 04:00 97.9 F 74 20 138/66 93 05/02/17 00:00 97.9 F 73 20 139/68 91 05/01/17 22:13 93 05/01/17 19:40 98.2 F 70 24 H 168/72 95 05/01/17 16:00 18 133/75 93 Intake and Output 05/01/17 05/02/17 05/02/17 21:59 05:59 13:59 Intake Total 650 / 650 450 / 450 800 / 800 Output Total 1650 / 1650 1701 / 1701 900 / 900 Balance -1000 / -1000 -1251 / -1251 -100 / -100 Intake: IV 50 / 50 100 / 100 Zosyn 3.375 gm In 50 / 50 100 / 100 Dextrose 5% in Water 50 ml @ 100 mls/hr IV Q6H [facility] Rx#:[id number] Oral 600 / 600 350 / 350 800 / 800 Output: Void Amount 1650 / 1650 1700 / 1700 900 / 900 # of times incontinent of 1 / 1 urine Other: Meal Dinner Breakfast Percent of Meal Consumed 100% 100% Feeding Ability Independent Independent # Voids 4 2 # Bowel Movements 1 1 1 Weight 265 lb 9.6 oz Medical - DS: Data Labs on day of discharge: Labs from last 24 hours 05/02/17 05/02/17 05:29 05:29 WBC 6.2 RBC 3.26 L Hgb 9.6 L Hct 28.7 L MCV 88.0 MCH 29.3 MCHC 33.3 RDW 13.9 Plt Count 295 MPV 8.0 Gran % 65.7 Lymph % (Auto) 21.9 [place] % (Auto) 6.2 Eos % (Auto) 5.9 Baso % (Auto) 0.3 Gran # 4.1 Lymph # (Auto) 1.4 L [place] # (Auto) 0.4 Eos # (Auto) 0.4 Baso # (Auto) 0 Sodium 140 Potassium 4.5 Chloride 103 Carbon Dioxide 26 Anion Gap 11.0 BUN 25 H Creatinine 1.7 H GFR Calculation 32 Glucose 98 Uric Acid 6.2 Calcium 9.5 Phosphorus 3.3 Magnesium 1.6 Total Bilirubin 0.3 Direct Bilirubin < 0.2 GGT 20 AST 20 ALT 9 Alkaline Phosphatase 85 Lactate Dehydrogenase 247 Total Protein 6.9 Albumin 3.4 Globulin 3.5 Albumin/Globulin Ratio 1.0 Triglycerides 84 May 01: Albumin is low at 3.1. Otherwise LFTs are within normal limits. April 30: [place] virus studies are negative. Sputum culture shows no growth so far. echocardiogram: Results pending. April 29: Chest x-ray: Shows minimal infiltrate in the right base Groundglass infiltrates that were seen on CT scan, are not visible on the chest x-ray. Central pulmonary arteries are mildly enlarged. April 27: Abdominal x-ray: 18 mm capsule endoscope was visible within the mid sigmoid colon. April 26: CT scan of the chest: Small patchy multifocal infiltrates noted in the right upper middle and lower lobes. Multiple large central pulmonary arteries suggestive of pulmonary hypertension. Moderate sized left paracentral calcified disc extrusion at T8-9. Small pericardial effusion. April 25 Blood cultures: Negative . April 24: CT of the abdomen without contrast: Metallic foreign body within the colon at the splenic flexure (capsule endoscopy camera). Small hiatal hernia. Small pericardial effusion. Moderate pancreatic atrophy. Mild diffuse wall thickening of the urinary bladder with possible cystitis. Tiny nonobstructing calyceal stones in both kidneys. Urine culture:grew greater than 100,000 Escherichia coli, resistant to ampicillin and tetracycline, but sensitive to Ancef, Rocephin, Cipro, nitrofurantoin, Bactrim, Zosyn Medical - DS: A/P - Patient/Caregiver Discharge Instructions Activity: as per physical therapy, increase activity as tolerated Diet: Consistent Carbohydrate Additional Instructions: 1. Return Daily to outpatient area, ( Med Surg area on the weekend) for 24 hour antibiotic dosing. You appointment is set up for daily at 5:00 pm. #2. Please follow-up with our new pulmonary doctor, Dr. Stallings regarding both possible sleep apnea and possible pulmonary artery hypertension. #3. Stop HCTZ. Start Lasix 4. A trial of pancreatic enzymes was started regarding your abdominal bloating. 5. Please follow-up with your doctor within a week, to review medication changes, blood pressure, and follow-up labs. Prescriptions: Albuterol Sulfate [Proair Hfa] 8.5 gm IH Q4HP PRN #1 [email or web address] PRN Reason: Shortness Of Breath Or Wheezing Furosemide [Lasix] 20 mg PO QAM #30 tablet Lipase/Protease/Amylase [Creon] 1 cap PO TIDCC #90 capsule Piperacillin Sodium/Tazobactam [Zosyn 3.375 Gram Vial] 3.375 gm IV Q6H #12 vial - Follow up Plan Follow up with: Jimmie Stallings MD [Physician] - 06/18/17 2:30 pm Bri Ryder ARNP [Primary Care Provider] - 05/09/17 9:55 am Disposition: Home Health Service Prognosis: Good Rehab Potential: Good Overall status at discharge: patient is progressing back to baseline Medical - DS: Qual - VTE Deep Vein Thrombosis/Pulmonary Embolism Present on Admission: No
== END 2017-05-02 15:25 | disposition home health service (06) | DRG 178 ==
LOC: ED 19:59 → MEDSUR 04-25 02:20 → SUATTDRO 04-25 02:21 → MEDSUR 04-25 16:38
PROVIDERS: ADMIT Internal Medicine; ATTEND Internal Medicine